=== PATIENT | female | born 1965 | race Two or more races ===

== ENCOUNTER 2016-05-22 12:10 | Inpatient (IN) | payer OTHER ==
[2016-05-22] MEDS ORDERED: SODIUM CHLORIDE 1,000 ML IV STA (14:21)
[2016-05-22] MEDS ORDERED: KETOROLAC TROMETHAMINE 30 MG/1 ML VIAL IVPUSH ONE (14:21)
[2016-05-22] MEDS ORDERED: KETOROLAC TROMETHAMINE 30 MG/1 ML VIAL ONE (14:49)
--- NOTE | 2016-05-22 14:50 | PDOC ---
History of Present Illness - General Chief Complaint: Pain, Acute Stated Complaint: ABD PAIN Time Seen by Provider: 05/22/16 13:41 History Source: Patient Exam Limitations: No Limitations - History of Present Illness Initial Comments: 05/22/16 14:46 50-year-old female presents to the ED with complaints of continual right upper quadrant pain that she describes as cramping now associated with nausea and headache. Patient states was seen here 2 weeks ago and was sent home after labs and CT were negative. Patient states history of cholecystectomy and also states history of pancreatitis 2-3 years ago. Patient denies fever, chills pain worsened with eating, dysuria, diarrhea, or lower abdominal discomfort. Patient also denies chest pain or shortness of breath, and cough. Timing/Duration: reports: constant, getting worse Quality: reports: moderate, cramping Abdominal Pain Onset Location: reports: RUQ Pain Radiation: denies: no radiation Aggravating Factors: worse with: None Alleviating Factors: worse with: None Past History - Past Medical History Allergies/Adverse Reactions: Allergies Allergy/AdvReac Type Severity Reaction Status Date / Time morphine Allergy Severe palpitation Verified 05/22/16 12:11 s Home Medications: Ambulatory Orders NK [No Known Home Medication] 05/10/16 Anemia: Yes Asthma: No Cancer: No Cardiac Disorders: No CVA: No COPD: No CHF: No Dementia: No Diabetes: No GI Disorders: Yes (CONSTIPATION, PANCRATITIS) Disorders: No HTN: No Hypercholesterolemia: No Liver Disease: No Seizures: No Thyroid Disease: No - Surgical History Abdominal Surgery: Yes Appendectomy: No Cardiac Surgery: No Cholecystectomy: Yes Lung Surgery: No Neurologic Surgery: No Orthopedic Surgery: No - Immunization History Immunization Up to Date: Yes - Psycho/Social/Smoking Cessation Hx Anxiety: No Suicidal Ideation: No Smoking Status: No Smoking History: Never smoked Have you smoked in the past 12 months: No Number of Cigarettes Smoked Daily: 0 Information on smoking cessation initiated: No Hx Alcohol Use: No Drug/Substance Use Hx: No Substance Use Type: Alcohol Hx Substance Use Treatment: No Patient Lives Alone: No Lives with/in: spouse/SO Abd/GI Specific PMHX - Complaint Specific PMHX Pancreatitis: Yes Review of Systems - Review of Systems Able to Perform ROS?: Yes Constitutional: No: Symptoms Reported HEENTM: No: Symptoms Reported Respiratory: No: Symptoms reported Cardiac (ROS): No: Symptoms Reported ABD/GI: Yes: Nausea, Abdominal cramping : No: Symptoms Reported Musculoskeletal: No: Symptoms Reported Integumentary: No: Symptoms Reported Neurological: Yes: Headache (frontal) Endocrine: No: Symptoms Reported Hematologic/Lymphatic: No: Symptoms Reported *Physical Exam - Vital Signs Last Vital Signs Temp Pulse Resp BP Pulse Ox 98.7 F 123 H 17 112/72 100 05/22/16 12:12 05/22/16 12:12 05/22/16 12:12 05/22/16 12:12 05/22/16 12:12 - Physical Exam General Appearance: Yes: Nourished, Appropriately Dressed. No: Apparent Distress HEENT: positive: EOMI, AMANDA. negative: Pale Conjunctivae Neck: positive: Normal Thyroid, Supple Respiratory/Chest: positive: Lungs Clear, Normal Breath Sounds. negative: Chest Tender, Respiratory Distress, Accessory Muscle Use Cardiovascular: positive: Regular Rhythm, Tachycardia. negative: Murmur Gastrointestinal/Abdominal: positive: Soft, Tenderness (ruq and right epigastric pain) Musculoskeletal: negative: CVA Tenderness Extremity: positive: Normal Capillary Refill. negative: Pedal Edema Integumentary: positive: Normal Color, Warm, Moist Neurologic: positive: Motor Strength 5/5 (ambulatory) ED Treatment Course - LABORATORY CBC & Chemistry Diagram: 05/24/16 10:55 05/24/16 10:55 - RADIOLOGY Radiology Studies Ordered: Category Date Time Status ABDOMEN US -LIMITED [US] Stat Ultrasound 05/22/16 14:24 Ordered Medical Decision Making - Critical Care Time Total Critical Care Time (minutes): 35 Critical Care Statement: The care of this patient involved high complexity decision making to prevent further life threatening deterioration of the patient 's condition and/or to evalute & treat vital organ system(s) failure or risk of failure. - Medical Decision Making 05/22/16 14:52 Patient with continual right upper quadrant pain now associated with nausea and frontal headache. Patient states has had no fever but has history of pancreatitis and cholecystectomy. Patient states was here 2 weeks ago and had an abdominal CT. CT showed biliary tract dilatation which was also noted 2015. Patient was sent home to follow-up with her PCP but states has not had an appointment yet because of the holiday and has an appointment next week but could not wait secondary to pain. Patient concerning for UTI versus worsening biliary tract dilatation versus pancreatitis versus CBD dilatation/stone. Patient ordered for labs including abdominal ultrasound, urine, IV fluids, pain control and Zofran 05/22/16 15:33 Patient has required Dilaudid for pain control of right upper quadrant tenderness. 05/22/16 17:00 Patient required second dose of Dilaudid after returning from ultrasound 05/22/16 17:35 Laboratory Tests 05/22/16 05/22/16 05/22/16 14:45 14:45 14:45 WBC 4.9 Hgb 13.6 Hct 42.9 Neutrophils % 78.8 D Sodium 140 Potassium 4.5 Chloride 106 Carbon Dioxide 27 Anion Gap 7 L BUN 8 D Creatinine 0.6 Creat Clearance w eGFR > 60 Random Glucose 87 Lactic Acid Calcium 8.9 Total Bilirubin 0.3 D AST 100 H D ALT 103 H Alkaline Phosphatase 205 H D Total Protein 8.5 H Lipase 186 Urine Ketones Negative Urine Nitrite Negative Ur Leukocyte Esterase Negative 05/22/16 14:45 WBC Hgb Hct Neutrophils % Sodium Potassium Chloride Carbon Dioxide Anion Gap BUN Creatinine Creat Clearance w eGFR Random Glucose Lactic Acid 1.980 Calcium Total Bilirubin AST ALT Alkaline Phosphatase Total Protein Lipase Urine Ketones Urine Nitrite Ur Leukocyte Esterase Ultrasound shows mild dilatation of the condyle that measuring 12 mm without gross at evidence of an intraluminal stone. Limits of normal in a postcholecystectomy is 10 mm. Further evaluation is needed. Patient continues with pain. Patient ordered for another Dilaudid IV push. 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 Butler who accepted patient to [facility] observation status. 05/24/16 12:10 *DC/Admit/Observation/Transfer Diagnosis at time of Disposition: Common bile duct dilatation, Intractable upper abdominal pain - Discharge Dispostion Admit: Yes
[2016-05-22 15:18] LABS: BASOPHIL 0.3 % (0-2.0); EOSINOPHIL 0.3 % (0-4.5); MCHC 31.6 g/dl (32.0-36.0); MEAN CELL VOLUME 85.5 fl (80-96); MEAN PLT VOLUME 8.6 fl (7.5-11.1); NEUTROPHILS 78.8 % (42.8-82.8); PLATELET COUNT 244 K/MM3 (134-434); WHITE BLOOD COUNT 4.9 K/mm3 (4.0-10.0)
[2016-05-22] MEDS ORDERED: HYDROmorphone HCL CARPU-JECT 2 MG/1 ML DISP.SYRIN IVPUSH ONE ×3 (15:39→17:31)
[2016-05-22] MEDS ORDERED: HYDROmorphone HCL CARPU-JECT 1 MG/1 ML DISP.SYRIN ONE ×3 (15:43→18:07)
[2016-05-22 15:46] LABS: ALBUMIN 4.1 g/dl (3.4-5.0); ALK PHOS 205 U/L (45-117); ANION GAP 7 (8-16); BILIRUBIN,TOTAL 0.3 mg/dL (0.2-1.0); CALCIUM 8.9 mg/dL (8.5-10.1); CO2 27 mmol/L (21-32); CREATININE 0.6 mg/dL (0.55-1.02); GLUCOSE,RANDOM 87 mg/dL (74-106); SGPT/ALT 103 U/L (12-78); TOT PROT 8.5 g/dl (6.4-8.2); URINE APPEARANCE CLEAR; URINE BILIRUBIN NEGATIVE (NEGATIVE); URINE BLOOD NEGATIVE (NEGATIVE); URINE COLOR STRAW; URINE GLUCOSE (UA) NEGATIVE (NEGATIVE); URINE KETONE NEGATIVE (NEGATIVE); URINE LEUK ESTERASE NEGATIVE (NEGATIVE); URINE NITRITE NEGATIVE (NEGATIVE); URINE PROTEIN NEGATIVE (NEGATIVE); URINE UROBILINOGEN NEGATIVE E.U./dl (0.2-1.0)
[2016-05-22 15:50] LABS: SGOT/AST 100 U/L (15-37)
[2016-05-22] MEDS ORDERED: INFLUENZA VACCINE 45 MCG/0.5 ML (MDV 16-17) IM ONE (19:54)
[2016-05-22] MEDS ORDERED: ACETAMINOPHEN 325 MG TABLET (FP) PO PRN (22:29)
[2016-05-22] MEDS ORDERED: DEXTROSE 5%-0.45% SALINE 1,000 ML IV SCH (22:30)
[2016-05-22 22:51] VITALS: BMI 26.2
[2016-05-23] MEDS: KETOROLAC TROMETHAMINE 30 MG/1 ML VIAL IVPUSH PRN ×3 (01:15→12:48)
[2016-05-23] MEDS ORDERED: ONDANSETRON 4 MG/2 ML VIAL IVPB PRN (02:05)
[2016-05-23 08:04] LABS: BASOPHIL 0.3 % (0-2.0); EOSINOPHIL 0.1 % (0-4.5); MCH 27.8 pg (25.7-33.7); MCHC 32.6 g/dl (32.0-36.0); MEAN CELL VOLUME 85.3 fl (80-96); MEAN PLT VOLUME 8.4 fl (7.5-11.1); NEUTROPHILS 49.5 % (42.8-82.8); PLATELET COUNT 204 K/MM3 (134-434); RDW 15.9 % (11.6-15.6); WHITE BLOOD COUNT 2.6 K/mm3 (4.0-10.0)
[2016-05-23 08:28] LABS: ALBUMIN 2.9 g/dl (3.4-5.0); ANION GAP 3 (8-16); CALCIUM 8.4 mg/dL (8.5-10.1); CO2 25 mmol/L (21-32); CREATININE 0.5 mg/dL (0.55-1.02); GLUCOSE,RANDOM 94 mg/dL (74-106); SGOT/AST 136 U/L (15-37); SGPT/ALT 154 U/L (12-78)
[2016-05-23 08:29] LABS: ALK PHOS 207 U/L (45-117); BILIRUBIN,TOTAL 0.4 mg/dL (0.2-1.0); TOT PROT 6.3 g/dl (6.4-8.2)
[2016-05-23] MEDS: HEPARIN NA (PORCINE) 5,000 UNITS/ML 1ML VIAL SQ SCH ×2 (11:54→21:52)
--- NOTE | 2016-05-23 14:46 | HP ---
Admitting History and Physical - Past Medical History ...LMP: 10/03/12 ...: No - Smoking History Smoking history: Never smoked Have you smoked in the past 12 months: No Aproximately how many cigarettes per day: 0 - Alcohol/Substance Use Hx Alcohol Use: No Home Medications - Allergies Allergies/Adverse Reactions: Allergies Allergy/AdvReac Type Severity Reaction Status Date / Time morphine Allergy Severe palpitation Verified 05/22/16 12:11 s - Home Medications Home Medications: Ambulatory Orders NK [No Known Home Medication] 05/10/16 Physical Examination Vital Signs: Vital Signs Temperature 97.8 F 05/23/16 09:00 Pulse Rate 83 05/23/16 09:00 Respiratory Rate 20 05/23/16 09:00 Blood Pressure 100/63 05/23/16 09:00 O2 Sat by Pulse Oximetry (%) 100 05/23/16 09:00 Labs: CBC, BMP 05/23/16 06:05 05/23/16 06:05
--- NOTE | 2016-05-23 18:56 | CONSULT ---
Consult Consult Specialty:: gastroenterology Referred by:: Dr Clement Marti/Luke Reason for Consultation:: ruq pain - History of Present Illness History of Present Illness: 50 y/o female s/o cholecystectomy 4 years ago has recurrent right upper quadrant pain for the past 3 mos. She was awakened by the pain last night and this morning. This was associated with nausea but no vomiting - Past Medical History ...LMP: 10/03/12 ...: No - Alcohol/Substance Use Hx Alcohol Use: No - Smoking History Smoking history: Never smoked Have you smoked in the past 12 months: No Aproximately how many cigarettes per day: 0 Home Medications - Allergies Allergies/Adverse Reactions: Allergies Allergy/AdvReac Type Severity Reaction Status Date / Time morphine Allergy Severe palpitation Verified 05/22/16 12:11 s - Home Medications Home Medications: Ambulatory Orders NK [No Known Home Medication] 05/10/16 Physical Exam-GI Vital Signs: Vital Signs Temperature 98 F 05/23/16 17:28 Pulse Rate 63 05/23/16 17:28 Respiratory Rate 18 05/23/16 17:28 Blood Pressure 103/64 05/23/16 17:28 O2 Sat by Pulse Oximetry (%) 100 05/23/16 09:00 Constitutional: Yes: Well Nourished Eyes: Yes: Conjunctiva Clear HENT: Yes: Atraumatic Neck: Yes: Supple Cardiovascular: Yes: Regular Rate and Rhythm Respiratory: Yes: CTA Bilaterally ...Palpate: Yes: Soft. No: Firm/Rigid, Guarding, Hepatomegaly, Mass, Pulsatile Mass, Tenderness (--on pain meds) Labs: CBC, BMP 05/23/16 06:05 05/23/16 06:05 Hepatic Panel Total Bilirubin 0.4 mg/dL (0.2-1.0) D 05/23/16 06:05 AST 136 U/L (15-37) H D 05/23/16 06:05 ALT 154 U/L (12-78) H D 05/23/16 06:05 Alkaline Phosphatase 207 U/L (45-117) H 05/23/16 06:05 Albumin 2.9 g/dl (3.4-5.0) L D 05/23/16 06:05 Imaging - Results Ultrasound: Report Reviewed MRI: Image Reviewed Problem List - Problems (1) Common bile duct dilatation Assessment/Plan: r/o CBD stone vs passage of sludge and stone vs sphincter of oddis dyskenisia R> await official MRCP result start on ayanna lieberman continue Iv hydration possible ERCP in am if no improvement--discussed risk including pancreatitis and bleeding and perforation Code(s): K83.8 - OTHER SPECIFIED DISEASES OF BILIARY TRACT
[2016-05-23] MEDS ORDERED: PANTOPRAZOLE SODIUM 100 ML IVPB ONE (19:00)
[2016-05-23] MEDS: DEXTROSE 5%-NORMAL SALINE 1,000 ML IV SCH (20:13)
[2016-05-23] MEDS: METOCLOPRAMIDE HCL INJECTION 10 MG/2 ML VIAL IVPB SCH (20:16)
[2016-05-23] MEDS: URSODIOL 300 MG CAPSULE PO SCH (21:52)
[2016-05-24] MEDS: KETOROLAC TROMETHAMINE 30 MG/1 ML VIAL IVPUSH PRN (01:36)
[2016-05-24] MEDS: METOCLOPRAMIDE HCL INJECTION 10 MG/2 ML VIAL IVPB SCH ×4 (02:13→19:57)
[2016-05-24 11:08] LABS: MCH 27.8 pg (25.7-33.7); MCHC 32.2 g/dl (32.0-36.0); MEAN CELL VOLUME 86.4 fl (80-96); MEAN PLT VOLUME 8.1 fl (7.5-11.1); PLATELET COUNT 220 K/MM3 (134-434); RDW 16.1 % (11.6-15.6)
[2016-05-24] MEDS: DEXTROSE 5%-NORMAL SALINE 1,000 ML IV SCH ×2 (11:13→19:57)
[2016-05-24] MEDS: URSODIOL 300 MG CAPSULE PO SCH ×3 (11:16→21:41)
[2016-05-24 11:28] LABS: ALBUMIN 3.4 g/dl (3.4-5.0); ANION GAP 7 (8-16); BILIRUBIN,TOTAL 0.3 mg/dL (0.2-1.0); CALCIUM 8.8 mg/dL (8.5-10.1); CO2 27 mmol/L (21-32); CREATININE 0.5 mg/dL (0.55-1.02); GLUCOSE,RANDOM 91 mg/dL (74-106); SGOT/AST 79 U/L (15-37); SGPT/ALT 130 U/L (12-78)
[2016-05-24 11:29] LABS: ALK PHOS 200 U/L (45-117)
[2016-05-24 11:50] LABS: WHITE BLOOD COUNT 1.9 K/mm3 (4.0-10.0)
[2016-05-24] MEDS: ACETAMINOPHEN 325 MG TABLET (FP) PO PRN (14:30)
[2016-05-24] MEDS: HEPARIN NA (PORCINE) 5,000 UNITS/ML 1ML VIAL SQ SCH ×2 (14:45→21:41)
[2016-05-24] MEDS: DICYCLOMINE HCL 10 MG CAPSULE PO PRN (14:47)
--- NOTE | 2016-05-24 15:40 | CONSULT ---
Consult Consult Specialty:: hematology-oncology Referred by:: Dr. 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) Pulmonary: Yes: Other (recent URI for which patient took Tamiflu) Gastrointestinal: Yes: Pancreatitis (hx of pancreatitis in prior hospital note) Hepatobiliary: Yes: Other (hx of cholecystectomy 5 years earlier) ...LMP: 10/03/12 ...: No Heme/Onc: Yes: Other (received transfusion of packed cells several years earlier ) - Past Surgical History Additional Surgical History: cholecystectomy 5 years earlier - Alcohol/Substance Use Hx Alcohol Use: No - Smoking History Smoking history: Never smoked Have you smoked in the past 12 months: No Aproximately how many cigarettes per day: 0 - 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 Home Medications - Allergies Allergies/Adverse Reactions: Allergies Allergy/AdvReac Type Severity Reaction Status Date / Time morphine Allergy Severe palpitation Verified 05/22/16 12:11 s - Home Medications Home Medications: Ambulatory Orders NK [No Known Home Medication] 05/10/16 Family Disease History - Family Disease History Family Disease History: Diabetes: Father (-complcations of DM), Other: Mother (-alive-hypertension) Other Family History: No cancer or blood dyscrasias Review of Systems - Review of Systems Constitutional: reports: Fever, Malaise, Other (3-4 days of fever last week- took Tamiflu and motrin). denies: Night Sweats Eyes: reports: No Symptoms HENT: denies: Difficult Swallowing, Throat Pain Neck: denies: Pain on Movement, Swollen Glands, Tenderness Cardiovascular: denies: Chest Pain, Shortness of Breath Respiratory: denies: Cough, Hemoptysis, SOB, SOB on Exertion Gastrointestinal: reports: Abdominal Pain, Nausea, Vomiting, Other (colonoscopy- 2 years earlier). denies: Constipation, Diarrhea, Dysphagia, Vomiting Blood Genitourinary: denies: Burning, Discharge, Dysuria Breasts: reports: No Symptoms Reported, Other (mammography 2 years earlier) Musculoskeletal: reports: Muscle Pain, Muscle Weakness Integumentary: denies: Bruising, Rash Neurological: reports: No Symptoms Endocrine: denies: Excessive Sweating Hematology/Lymphatic: denies: Easily Bruised, Excessive Bleeding Psychiatric: reports: No Symptoms Physical Exam Vital Signs: Vital Signs Temperature 98.3 F 05/24/16 14:23 Pulse Rate 78 05/24/16 14:23 Respiratory Rate 20 05/24/16 14:23 Blood Pressure 119/72 05/24/16 14:23 O2 Sat by Pulse Oximetry (%) 100 05/23/16 21:00 Constitutional: Yes: No Distress Eyes: Yes: EOM Intact, PERRL. No: Cataracts, Diplopia, Ptosis, Sclera Icterus HENT: No: Pharyngeal Erythema, Tonsillar Exudate Neck: Yes: Supple, Trachea Midline. No: Lymphadenopathy, Tenderness Cardiovascular: Yes: Regular Rate and Rhythm Respiratory: Yes: Regular, CTA Bilaterally Gastrointestinal: Yes: Normal Bowel Sounds, Soft. No: Hepatomegaly, Splenomegaly Renal/: No: CVA Tenderness - Left, CVA Tenderness - Right Breast(s): Yes: WNL, Left, Right. No: Skin Changes Musculoskeletal: No: Joint Swelling Extremities: Yes: WNL Edema: No Neurological: Yes: WNL Labs: CBC, BMP 05/24/16 10:55 05/24/16 10:55 Imaging - Results MRI: Report Reviewed Problem List - Problems (1) Leukopenia Assessment/Plan: Leukopenia which has developed in hospital. Consider medications or infection as underlying etiololy Meds- reglan and actigall (3%) possible offenders Would consider d/c of above meds and culturing up, followed by antibiotic therapy. Will do screening tests. . Code(s): D72.819 - DECREASED WHITE BLOOD CELL COUNT, UNSPECIFIED Qualifiers: Neutropenia type: unspecified (2) Common bile duct dilatation Assessment/Plan: CBD dilatation with cut-off. Consider ERCP Code(s): K83.8 - OTHER SPECIFIED DISEASES OF BILIARY TRACT
[2016-05-24] MEDS ORDERED: CEFTRIAXONE 1 GM in DEXTROSE 5%-WATER - 50 ML IVPB SCH (18:30)
--- NOTE | 2016-05-24 19:46 | PN ---
GI Progress Note Subjective: no abdominal pain since 1am this morning, lfts downward trend but with new onset of leukopenia - Objective Vital Signs: Vital Signs Temperature 98.3 F 05/24/16 14:23 Pulse Rate 78 05/24/16 14:23 Respiratory Rate 20 05/24/16 14:23 Blood Pressure 119/72 05/24/16 14:23 O2 Sat by Pulse Oximetry (%) 100 05/23/16 21:00 Constitutional: Well Nourished Eyes: Yes: Conjunctiva Clear HENT: Yes: Atraumatic Neck: Yes: Supple Cardiovascular: Yes: Regular Rate and Rhythm Respiratory: Yes: CTA Bilaterally ...Palpate: Yes: Soft. No: Firm/Rigid, Guarding, Hepatomegaly, Mass, Pulsatile Mass, Splenomegaly, Tenderness Labs: CBC, BMP 05/24/16 10:55 05/24/16 10:55 Problem List - Problems (1) Common bile duct dilatation Assessment/Plan: lfts downward trend possibly patient passed CBD stone/sludge Code(s): K83.8 - OTHER SPECIFIED DISEASES OF BILIARY TRACT (2) Leukopenia Assessment/Plan: r/o underlying cholangitis unlikely , etiology unclear R>started emprically on Ceftriaxone and Flagyl Code(s): D72.819 - DECREASED WHITE BLOOD CELL COUNT, UNSPECIFIED Qualifiers: Neutropenia type: unspecified
[2016-05-24] MEDS: METRONIDAZOLE 500 MG PREMIXED 100 ML IVPB SCH (20:00)
[2016-05-24] MEDS: cefTRIAXone 1 GM/50 ML BAG (PRE-DOCKED) IVPB SCH (21:42)
--- NOTE | 2016-05-24 22:46 | PN ---
Progress Note, Physician - Current Medication List Current Medications: Active Medications Acetaminophen (Tylenol -) 650 mg PO Q6H PRN PRN Reason: FEVER Last Admin: 05/24/16 14:30 Dose: 650 mg Ceftriaxone Sodium (Rocephin 1gm Ivpb (Pre-Docked)) 1 gm IVPB DAILY [facility] Last Admin: 05/24/16 21:42 Dose: 1 gm Dicyclomine HCl (Bentyl -) 10 mg PO Q8H PRN PRN Reason: MUSCLE SPASMS Last Admin: 05/24/16 14:47 Dose: 10 mg Heparin Sodium (Porcine) (Heparin -) 5,000 unit SQ BID [facility] Last Admin: 05/24/16 21:41 Dose: 5,000 unit Dextrose/Sodium Chloride (D5-Ns -) 1,000 mls @ 125 mls/hr IV ASDIR [facility] Stop: 05/26/16 02:59 Last Admin: 05/24/16 19:57 Dose: Not Given Metronidazole (Flagyl 500mg Premixed Ivpb -) 100 mls @ 100 mls/hr IVPB Q8H-IV [facility] Last Admin: 05/24/16 20:00 Dose: 100 mls/hr Ketorolac Tromethamine (Toradol Injection -) 30 mg IVPUSH Q6H PRN Stop: 05/27/16 22:27 Last Admin: 05/24/16 01:36 Dose: 30 mg Metoclopramide HCl (Reglan Injection -) 10 mg IVPB Q8H-IV [facility] Last Admin: 05/24/16 19:57 Dose: Not Given Ondansetron HCl (Zofran Injection) 4 mg IVPB Q6H PRN PRN Reason: NAUSEA Ursodiol (Actigal -) 300 mg PO BID [facility] Last Admin: 05/24/16 21:41 Dose: 300 mg - Objective Vital Signs: Vital Signs Temperature 98.1 F 05/24/16 21:35 Pulse Rate 65 05/24/16 21:35 Respiratory Rate 18 05/24/16 21:35 Blood Pressure 102/63 05/24/16 21:35 O2 Sat by Pulse Oximetry (%) 100 05/23/16 21:00 Labs: CBC, BMP 05/24/16 10:55 05/24/16 10:55
[2016-05-25] MEDS: DEXTROSE 5%-NORMAL SALINE 1,000 ML IV SCH ×2 (00:39→19:27)
[2016-05-25] MEDS: PIPERACILLIN/TAZOB 3.375 GM/50 ML PRE-DOCKED IVPB SCH ×2 (00:40→07:03)
[2016-05-25] MEDS: METOCLOPRAMIDE HCL INJECTION 10 MG/2 ML VIAL IVPB SCH ×2 (02:41→12:32)
[2016-05-25] MEDS: METRONIDAZOLE 500 MG PREMIXED 100 ML IVPB SCH ×2 (02:42→16:18)
[2016-05-25] MEDS: DICYCLOMINE HCL 10 MG CAPSULE PO PRN (04:26)
[2016-05-25 07:45] LABS: BASOPHIL 0.5 % (0-2.0); EOSINOPHIL 0.9 % (0-4.5); MCH 27.8 pg (25.7-33.7); MCHC 32.9 g/dl (32.0-36.0); MEAN CELL VOLUME 84.6 fl (80-96); MEAN PLT VOLUME 8.4 fl (7.5-11.1); NEUTROPHILS 44.5 % (42.8-82.8); PLATELET COUNT 203 K/MM3 (134-434); RDW 15.9 % (11.6-15.6)
[2016-05-25 08:01] LABS: BILIRUBIN,TOTAL 0.2 mg/dL (0.2-1.0)
[2016-05-25 08:03] LABS: ALBUMIN 2.8 g/dl (3.4-5.0); ANION GAP 6 (8-16); CALCIUM 8.1 mg/dL (8.5-10.1); CO2 28 mmol/L (21-32); CREATININE 0.6 mg/dL (0.55-1.02); GLUCOSE,RANDOM 113 mg/dL (74-106); SGOT/AST 43 U/L (15-37); SGPT/ALT 85 U/L (12-78)
[2016-05-25 08:05] LABS: WHITE BLOOD COUNT 1.6 K/mm3 (4.0-10.0)
[2016-05-25 08:07] LABS: INR 1.12 (0.82-1.09); PROTHROMBIN TIME (PATIENT) 12.3 SEC (9.98-11.88)
[2016-05-25 08:09] LABS: ALK PHOS 165 U/L (45-117); FREE T4 1.37 ng/dl (0.76-1.46); THYROID STIMULATING HORMONE 0.39 uIU/ml (0.358-3.74)
[2016-05-25 08:10] LABS: ACTIVATED PTT 34.9 SECONDS (26.9-34.4)
[2016-05-25] MEDS: cefTRIAXone 1 GM/50 ML BAG (PRE-DOCKED) IVPB SCH (11:38)
[2016-05-25] MEDS: HEPARIN NA (PORCINE) 5,000 UNITS/ML 1ML VIAL SQ SCH ×2 (11:38→21:03)
[2016-05-25] MEDS: URSODIOL 300 MG CAPSULE PO SCH (11:38)
--- NOTE | 2016-05-25 15:48 | CONSULT ---
Consult Consult Specialty:: infectious diseases Referred by:: Reason for Consultation:: sepsis - History of Present Illness Chief Complaint: abd pain ruq History of Present Illness: 50 y/o female s/p cholecystectomy 4 years ago has been having recurrent right upper quadrant pain for the past 3 mos. 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) Pulmonary: Yes: Other (recent URI for which patient took Tamiflu) Gastrointestinal: Yes: Pancreatitis (hx of pancreatitis in prior hospital note) Hepatobiliary: Yes: Other (hx of cholecystectomy 5 years earlier) ...LMP: 10/03/12 ...: No - Past Surgical History Additional Surgical History: cholecystectomy 5 years earlier - Alcohol/Substance Use Hx Alcohol Use: No - Smoking History Smoking history: Never smoked Have you smoked in the past 12 months: No Aproximately how many cigarettes per day: 0 - 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 Home Medications - Allergies Allergies/Adverse Reactions: Allergies Allergy/AdvReac Type Severity Reaction Status Date / Time morphine Allergy Severe palpitation Verified 05/22/16 12:11 s - Home Medications Home Medications: Ambulatory Orders NK [No Known Home Medication] 05/10/16 Family Disease History - Family Disease History Family Disease History: Diabetes: Father (-complcations of DM), Other: Mother (-alive-hypertension) Other Family History: No cancer or blood dyscrasias Review of Systems - Review of Systems Constitutional: reports: No Symptoms Eyes: reports: No Symptoms HENT: reports: No Symptoms Neck: reports: No Symptoms Cardiovascular: reports: No Symptoms Respiratory: reports: No Symptoms Gastrointestinal: reports: Abdominal Pain, Nausea Genitourinary: reports: No Symptoms Musculoskeletal: reports: No Symptoms Neurological: reports: No Symptoms Endocrine: reports: No Symptoms Hematology/Lymphatic: reports: No Symptoms Psychiatric: reports: No Symptoms Physical Exam Vital Signs: Vital Signs Temperature 97.8 F 05/25/16 14:58 Pulse Rate 62 05/25/16 14:58 Respiratory Rate 20 05/25/16 14:58 Blood Pressure 101/62 05/25/16 14:58 O2 Sat by Pulse Oximetry (%) 100 05/23/16 21:00 Constitutional: Yes: Well Nourished, Calm, Mild Distress Eyes: Yes: Conjunctiva Clear Cardiovascular: Yes: Regular Rate and Rhythm Respiratory: Yes: Regular, CTA Bilaterally Gastrointestinal: Yes: Normal Bowel Sounds, Soft Musculoskeletal: Yes: WNL Extremities: Yes: WNL Integumentary: Yes: WNL Neurological: Yes: Alert, Oriented Psychiatric: Yes: Alert, Oriented Imaging - Results Ultrasound: Report Reviewed, Image Reviewed Other: Report Reviewed (mrcp), Image Reviewed Assessment/Plan patient is neutropenic and i agree with the thought process that drugs she had tken could have caused this picture also i could not get any relevant living condition history Also she could have had cbd ston or passed looking at the mrcp with nausea and other features there is a rare chance of viral issues which could have cause some BM suppression The last thing is she could have been in sepsis because of her biliary issues Problem List - Problems (1) Common bile duct dilatation Code(s): K83.8 - OTHER SPECIFIED DISEASES OF BILIARY TRACT neutropenia abd pain and nausea plan she should get ercp i will cover her with abx because she is very high nate for infection untill neutropenia improves close watch on wbc hold of medication rest as per teams
--- NOTE | 2016-05-25 17:51 | PN ---
GI Progress Note Subjective: patients abdominal pain resolved - Objective Vital Signs: Vital Signs Temperature 97.8 F 05/25/16 14:58 Pulse Rate 62 05/25/16 14:58 Respiratory Rate 20 05/25/16 14:58 Blood Pressure 101/62 05/25/16 14:58 O2 Sat by Pulse Oximetry (%) 100 05/23/16 21:00 Constitutional: Well Nourished Eyes: Yes: Conjunctiva Clear HENT: Yes: Atraumatic Neck: Yes: Supple Cardiovascular: Yes: Regular Rate and Rhythm Respiratory: Yes: CTA Bilaterally ...Palpate: Yes: Soft. No: Firm/Rigid, Guarding, Hepatomegaly, Mass, Pulsatile Mass, Splenomegaly, Tenderness Labs: INR, PTT INR 1.12 (0.82-1.09) 05/25/16 06:00 Problem List - Problems (1) Common bile duct dilatation Assessment/Plan: --r/o sphincter of oddi dyskenisia Code(s): K83.8 - OTHER SPECIFIED DISEASES OF BILIARY TRACT (2) Leukopenia Assessment/Plan: --most likely viral R>viral w/u ordered Code(s): D72.819 - DECREASED WHITE BLOOD CELL COUNT, UNSPECIFIED Qualifiers: Neutropenia type: unspecified
[2016-05-25] MEDS ORDERED: PIPERACILLIN/TAZOB 3.375 GM/50 ML PRE-DOCKED IVPB SCH (18:00)
[2016-05-25] MEDS: PIPERACILLIN/TAZOB 4.5 GM 100 ML IVPB SCH (18:55)
--- NOTE | 2016-05-25 20:10 | PN ---
Progress Note, Physician History of Present Illness: comfortable - Current Medication List Current Medications: Active Medications Acetaminophen (Tylenol -) 650 mg PO Q6H PRN PRN Reason: FEVER Last Admin: 05/24/16 14:30 Dose: 650 mg Heparin Sodium (Porcine) (Heparin -) 5,000 unit SQ BID [facility] Last Admin: 05/25/16 11:38 Dose: 5,000 unit Dextrose/Sodium Chloride (D5-Ns -) 1,000 mls @ 125 mls/hr IV ASDIR [facility] Stop: 05/26/16 02:59 Last Admin: 05/25/16 19:27 Dose: Not Given Piperacillin Sod/Tazobactam Sod (Zosyn 4.5gm Ivpb (Pre-Docked)) 100 mls @ 200 mls/hr IVPB Q8H-IV [facility] Last Admin: 05/25/16 18:55 Dose: 200 mls/hr - Objective Vital Signs: Vital Signs Temperature 97.5 F L 05/25/16 19:00 Pulse Rate 86 05/25/16 19:00 Respiratory Rate 18 05/25/16 19:00 Blood Pressure 107/66 05/25/16 19:00 O2 Sat by Pulse Oximetry (%) 100 05/23/16 21:00 Constitutional: Yes: No Distress HENT: Yes: Atraumatic Neck: Yes: Supple Cardiovascular: Yes: Regular Rate and Rhythm Respiratory: Yes: CTA Bilaterally Gastrointestinal: Yes: Normal Bowel Sounds Extremities: Yes: WNL Labs: INR, PTT INR 1.12 (0.82-1.09) 05/25/16 06:00 Problem List - Problems (1) Common bile duct dilatation Assessment/Plan: need to know further plans from gi ercp??? Code(s): K83.8 - OTHER SPECIFIED DISEASES OF BILIARY TRACT (2) Leukopenia Assessment/Plan: will monitor does not know the reason , culd be side effect of medication? Code(s): D72.819 - DECREASED WHITE BLOOD CELL COUNT, UNSPECIFIED Qualifiers: Neutropenia type: unspecified (3) Abdominal pain Assessment/Plan: resolved Code(s): R10.9 - UNSPECIFIED ABDOMINAL PAIN Qualifiers: Abdominal location: left lower quadrant Qualified Code(s): R10.32 - Left lower quadrant pain
--- NOTE | 2016-05-25 23:46 | PN ---
Progress Note (short form) - Note Progress Note: Patient seen and examined Feels OK. no specific complaints Last Vital Signs Temp Pulse Resp BP Pulse Ox 98 F 66 18 129/74 98 05/25/16 20:29 05/25/16 20:29 05/25/16 20:29 05/25/16 20:29 05/25/16 20:29 HEENT: CECILIA, EOM Intact Oropharynx: No thrush, No mucositis Cor: RSR, No murmurs, No gallops Lungs: Clear to P&A Abd: Soft, Normal bowel sounds, No organomegaly Ext:No significant edema Skin: No rashes, Integument intact Abnormal Lab Results 05/25/16 05/25/16 05/25/16 06:00 06:00 06:00 WBC 1.6 L RDW 15.9 H Lymphocytes % 42.2 H Monocytes % 11.9 H PTT (Actin FS) 34.9 H Chloride 110 H Anion Gap 6 L BUN 4 L D Random Glucose 113 H D Calcium 8.1 L AST 43 H D ALT 85 H D Alkaline Phosphatase 165 H Total Protein 6.0 L Albumin 2.8 L Serum Folate 24 H Current Medications Acetaminophen (Tylenol -) 650 mg PO Q6H PRN PRN Reason: FEVER Last Admin: 05/24/16 14:30 Dose: 650 mg Heparin Sodium (Porcine) (Heparin -) 5,000 unit SQ BID NELLY Last Admin: 05/25/16 21:03 Dose: 5,000 unit Dextrose/Sodium Chloride (D5-Ns -) 1,000 mls @ 125 mls/hr IV ASDIR NELLY Stop: 05/26/16 02:59 Last Admin: 05/25/16 19:27 Dose: Not Given Piperacillin Sod/Tazobactam Sod (Zosyn 4.5gm Ivpb (Pre-Docked)) 100 mls @ 200 mls/hr IVPB Q8H-IV NELLY Last Admin: 05/25/16 18:55 Dose: 200 mls/hr a/P 50 y/o patient with leukopenia ---? post viral B12 --nl --_ antiparietal cell antibody folate/TSH--nl Flow pending HIV pending HEIDI/RF/ESR/CRP --pending monitor for infection Dilated CBD/hepatic ducts--w/u per GI team
[2016-05-26] MEDS: PIPERACILLIN/TAZOB 4.5 GM 100 ML IVPB SCH ×3 (01:19→18:31)
[2016-05-26 07:26] LABS: MEAN PLT VOLUME 8.2 fl (7.5-11.1); PLATELET COUNT 230 K/MM3 (134-434); RDW 15.7 % (11.6-15.6)
[2016-05-26 07:52] LABS: WHITE BLOOD COUNT 1.8 K/mm3 (4.0-10.0)
[2016-05-26 08:21] LABS: ALBUMIN 3.2 g/dl (3.4-5.0); ANION GAP 8 (8-16); CALCIUM 8.7 mg/dL (8.5-10.1); CO2 28 mmol/L (21-32); GLUCOSE,RANDOM 84 mg/dL (74-106); SGOT/AST 51 U/L (15-37)
[2016-05-26 08:26] LABS: ALK PHOS 159 U/L (45-117); BILIRUBIN,TOTAL 0.3 mg/dL (0.2-1.0); CREATININE 0.5 mg/dL (0.55-1.02); SGPT/ALT 83 U/L (12-78); TOT PROT 6.5 g/dl (6.4-8.2)
[2016-05-26 08:56] LABS: HIV 1 & 2 AB NEGATIVE; HIV 1 AGp24 NEGATIVE
[2016-05-26 09:00] LABS: C-REACTIVE PROTEIN < 0.3 MG/DL (0.00-0.3)
[2016-05-26] MEDS: HEPARIN NA (PORCINE) 5,000 UNITS/ML 1ML VIAL SQ SCH ×2 (11:33→21:22)
--- NOTE | 2016-05-26 13:16 | PN ---
Progress Note, Physician History of Present Illness: no issues has been stable no complaints - Current Medication List Current Medications: Active Medications Acetaminophen (Tylenol -) 650 mg PO Q6H PRN PRN Reason: FEVER Last Admin: 05/24/16 14:30 Dose: 650 mg Heparin Sodium (Porcine) (Heparin -) 5,000 unit SQ BID NELLY Last Admin: 05/26/16 11:33 Dose: 5,000 unit Piperacillin Sod/Tazobactam Sod (Zosyn 4.5gm Ivpb (Pre-Docked)) 100 mls @ 200 mls/hr IVPB Q8H-IV NELLY Last Admin: 05/26/16 11:33 Dose: 200 mls/hr - Objective Vital Signs: Vital Signs Temperature 98.4 F 05/26/16 06:23 Pulse Rate 68 05/26/16 06:23 Respiratory Rate 18 05/26/16 06:23 Blood Pressure 112/65 05/26/16 06:23 O2 Sat by Pulse Oximetry (%) 98 05/25/16 20:29 Constitutional: Yes: No Distress, Calm Cardiovascular: Yes: Regular Rate and Rhythm Respiratory: Yes: Regular, CTA Bilaterally Gastrointestinal: Yes: Normal Bowel Sounds, Soft Musculoskeletal: Yes: WNL Extremities: Yes: WNL Neurological: Yes: Alert, Oriented Psychiatric: Yes: Alert Labs: CBC, BMP 05/26/16 06:00 05/26/16 06:00 INR, PTT INR 1.12 (0.82-1.09) 05/25/16 06:00 Assessment/Plan patient is neutropenic and i agree with the thought process that drugs she had tken could have caused this picture also i could not get any relevant living condition history Also she could have had cbd ston or passed looking at the mrcp with nausea and other features there is a rare chance of viral issues which could have cause some BM suppression The last thing is she could have been in sepsis because of her biliary issues Problem List - Problems (1) Common bile duct dilatation Code(s): K83.8 - OTHER SPECIFIED DISEASES OF BILIARY TRACT neutropenia abd pain and nausea plan continue abx patient has slightly increased wbc agree with the thought process of r/o hiv continue to monitor
--- NOTE | 2016-05-26 16:59 | PN ---
Progress Note (short form) - Note Progress Note: Patient seen and examined symptoms improved Last Vital Signs Temp Pulse Resp BP Pulse Ox 97.9 F 50 L 20 115/69 98 05/26/16 15:20 05/26/16 15:20 05/26/16 15:20 05/26/16 15:20 05/25/16 20:29 HEENT: CECILIA, EOM Intact Oropharynx: No thrush, No mucositis Cor: RSR, No murmurs, No gallops Lungs: Clear to P&A Abd: Soft, Normal bowel sounds, No organomegaly Ext:No significant edema Abnormal Lab Results 05/26/16 05/26/16 06:00 06:00 WBC 1.8 L RDW 15.7 H Neutrophils % 36.0 L Lymphocytes % 54.0 H D Chloride 108 H BUN 4 L Creatinine 0.5 L AST 51 H ALT 83 H Alkaline Phosphatase 159 H Albumin 3.2 L Current Medications Acetaminophen (Tylenol -) 650 mg PO Q6H PRN PRN Reason: FEVER Last Admin: 05/24/16 14:30 Dose: 650 mg Heparin Sodium (Porcine) (Heparin -) 5,000 unit SQ BID NELLY Last Admin: 05/26/16 11:33 Dose: 5,000 unit Piperacillin Sod/Tazobactam Sod (Zosyn 4.5gm Ivpb (Pre-Docked)) 100 mls @ 200 mls/hr IVPB Q8H-IV NELLY Last Admin: 05/26/16 11:33 Dose: 200 mls/hr a/P 50 y/o patient with leukopenia --- B12 --nl --_++antiparietal cell antibody folate/TSH--nl Flow pending HIV negative Hep. serologies opending HEIDI/RF/ESR/CRP --pending Dilated CBD/hepatic ducts, post cholecystectomy physiologic phenomenon versus -- -stricture/? dyskinbesis --given that dilatation has worsened. Patients symptoms have improved on antibiotics. Hence occult biliary sepsis as a cause of leukopenia? Improving clinically on antibiotics will need to monitor WBC will need outpatient office f/u with us
--- NOTE | 2016-05-26 17:40 | PN ---
Progress Note, Physician History of Present Illness: comfortable - Current Medication List Current Medications: Active Medications Acetaminophen (Tylenol -) 650 mg PO Q6H PRN PRN Reason: FEVER Last Admin: 05/24/16 14:30 Dose: 650 mg Heparin Sodium (Porcine) (Heparin -) 5,000 unit SQ BID NELLY Last Admin: 05/26/16 11:33 Dose: 5,000 unit Piperacillin Sod/Tazobactam Sod (Zosyn 4.5gm Ivpb (Pre-Docked)) 100 mls @ 200 mls/hr IVPB Q8H-IV NELLY Last Admin: 05/26/16 11:33 Dose: 200 mls/hr - Objective Vital Signs: Vital Signs Temperature 97.9 F 05/26/16 15:20 Pulse Rate 50 L 05/26/16 15:20 Respiratory Rate 20 05/26/16 15:20 Blood Pressure 115/69 05/26/16 15:20 O2 Sat by Pulse Oximetry (%) 98 05/25/16 20:29 Constitutional: Yes: No Distress HENT: Yes: Atraumatic Neck: Yes: Supple Cardiovascular: Yes: Regular Rate and Rhythm Respiratory: Yes: CTA Bilaterally Gastrointestinal: Yes: Normal Bowel Sounds Extremities: Yes: WNL Neurological: Yes: Alert, Oriented Labs: CBC, BMP 05/26/16 06:00 05/26/16 06:00 INR, PTT INR 1.12 (0.82-1.09) 05/25/16 06:00 Problem List - Problems (1) Common bile duct dilatation Code(s): K83.8 - OTHER SPECIFIED DISEASES OF BILIARY TRACT (2) Leukopenia Code(s): D72.819 - DECREASED WHITE BLOOD CELL COUNT, UNSPECIFIED Qualifiers: Neutropenia type: unspecified (3) Abdominal pain Code(s): R10.9 - UNSPECIFIED ABDOMINAL PAIN Qualifiers: Abdominal location: left lower quadrant Qualified Code(s): R10.32 - Left lower quadrant pain Assessment/Plan Problem List - Problems (1) Common bile duct dilatation need to know further plans from gi ercp??? (2) Leukopenia still the same on abx (3) Abdominal pain resolved:
--- NOTE | 2016-05-26 20:03 | PN ---
GI Progress Note Subjective: tolerating diet, patient and was made aware of findings of dilated CBD and pancreatic cyst. Patient for EUS once acute event is resolved, contraindicated to undergo any procedure including ERCP at this time because of neutropenia - Objective Vital Signs: Vital Signs Temperature 98.2 F 05/26/16 19:32 Pulse Rate 66 05/26/16 19:32 Respiratory Rate 18 05/26/16 19:37 Blood Pressure 107/71 05/26/16 19:32 O2 Sat by Pulse Oximetry (%) 98 05/26/16 19:37 Constitutional: Well Nourished Eyes: Yes: Conjunctiva Clear HENT: Yes: Atraumatic Neck: Yes: Trachea Midline Cardiovascular: Yes: Regular Rate and Rhythm Respiratory: Yes: CTA Bilaterally ...Palpate: Yes: Soft. No: Firm/Rigid, Guarding, Hepatomegaly, Mass, Pulsatile Mass, Splenomegaly, Tenderness Labs: CBC, BMP 05/26/16 06:00 05/26/16 06:00 INR, PTT INR 1.12 (0.82-1.09) 05/25/16 06:00 Problem List - Problems (1) Common bile duct dilatation Assessment/Plan: associated with small cyst R> will arrange of endoscopic ultrasound as an outpatient, the patients family was made aware Code(s): K83.8 - OTHER SPECIFIED DISEASES OF BILIARY TRACT (2) Leukopenia Code(s): D72.819 - DECREASED WHITE BLOOD CELL COUNT, UNSPECIFIED Qualifiers: Neutropenia type: unspecified
[2016-05-27] MEDS: ACETAMINOPHEN 325 MG TABLET (FP) PO PRN (01:09)
[2016-05-27] MEDS: PIPERACILLIN/TAZOB 4.5 GM 100 ML IVPB SCH ×3 (01:10→17:58)
[2016-05-27 10:04] LABS: MEAN CELL VOLUME 85.3 fl (80-96); WHITE BLOOD COUNT 2.6 K/mm3 (4.0-10.0)
[2016-05-27 10:05] LABS: MCH 27.6 pg (25.7-33.7); MCHC 32.4 g/dl (32.0-36.0); MEAN PLT VOLUME 8.8 fl (7.5-11.1); PLATELET COUNT 233 K/MM3 (134-434); RDW 16.3 % (11.6-15.6)
--- NOTE | 2016-05-27 10:16 | PN ---
Progress Note (short form) - Note Progress Note: Patient seen and examined Offers no complaints on ROS. In particular denies chest pain, cough, SOB, dyspnea, GI problems of nausea, emesis, diarrhea, constipation, abdominal pains, dysuria, frequency, hematuria. Tolerating diet Last Vital Signs Temp Pulse Resp BP Pulse Ox 98.6 F 62 18 103/60 98 05/27/16 06:00 05/27/16 06:00 05/27/16 06:00 05/27/16 06:00 05/26/16 19:37 HEENT: CECILIA, EOM Intact Oropharynx: No thrush, No mucositis Cor: RSR, No murmurs, No gallops Lungs: Clear to P&A Abd: Soft, Normal bowel sounds, No organomegaly Ext:No significant edema Skin: No rashes, Integument intact No lab available- will re-order. Current Medications Generic Name Dose Route Start Last Admin Trade Name Freq PRN Reason Stop Dose Admin Acetaminophen 650 mg 05/22/16 22:40 05/27/16 01:09 Tylenol - PO 650 mg Q6H PRN Administration FEVER Heparin Sodium (Porcine) 5,000 unit 05/23/16 10:00 05/26/16 21:22 Heparin - SQ 5,000 unit BID NELLY Administration Piperacillin Sod/Tazobactam Sod 100 mls @ 200 mls/hr 05/25/16 16:30 05/27/16 01 :10 Zosyn 4.5gm Ivpb (Pre-Docked) IVPB 200 mls/hr Q8H-IV NELLY Administration Impression: CBD dilatation- for ERCP in future . Need acute problems and neutropenia resolution Pancreatic cysts Neutropenia- antecedent viral like illness prior to admission ; Currently on zosyn for possible infectious etiology As WBC was normal on admission, would anticipate improvement with time. IF no improvement, patient will require bone marrow examination. Problem List - Problems (1) Leukopenia Code(s): D72.819 - DECREASED WHITE BLOOD CELL COUNT, UNSPECIFIED Qualifiers: Neutropenia type: unspecified (2) Common bile duct dilatation Code(s): K83.8 - OTHER SPECIFIED DISEASES OF BILIARY TRACT
[2016-05-27] MEDS: HEPARIN NA (PORCINE) 5,000 UNITS/ML 1ML VIAL SQ SCH ×2 (10:55→22:42)
[2016-05-27 11:28] LABS: ERYTHROCYTE SEDIMENTATION RATE 33 mm/hr (0-30)
--- NOTE | 2016-05-27 19:47 | PN ---
Progress Note, Physician - Current Medication List Current Medications: Active Medications Acetaminophen (Tylenol -) 650 mg PO Q6H PRN PRN Reason: FEVER Last Admin: 05/27/16 01:09 Dose: 650 mg Heparin Sodium (Porcine) (Heparin -) 5,000 unit SQ BID NELLY Last Admin: 05/27/16 10:55 Dose: 5,000 unit Piperacillin Sod/Tazobactam Sod (Zosyn 4.5gm Ivpb (Pre-Docked)) 100 mls @ 200 mls/hr IVPB Q8H-IV NELLY Last Admin: 05/27/16 17:58 Dose: 200 mls/hr - Objective Vital Signs: Vital Signs Temperature 97.9 F 05/27/16 10:00 Pulse Rate 70 05/27/16 10:00 Respiratory Rate 18 05/27/16 10:00 Blood Pressure 124/64 05/27/16 10:00 O2 Sat by Pulse Oximetry (%) 100 05/27/16 09:00 Labs: CBC, BMP 05/27/16 06:15 05/26/16 06:00 INR, PTT INR 1.12 (0.82-1.09) 05/25/16 06:00
[2016-05-28 00:07] LABS: HBeAG Negative (Negative); HEP B SURFACE AB Non Reactive (.); HEP BE AB Negative (Negative)
[2016-05-28] MEDS: PIPERACILLIN/TAZOB 4.5 GM 100 ML IVPB SCH ×2 (01:08→09:35)
[2016-05-28 08:06] LABS: BASOPHIL 0.2 % (0-2.0); EOSINOPHIL 1.7 % (0-4.5); MCH 28.2 pg (25.7-33.7); MEAN CELL VOLUME 85.2 fl (80-96); MEAN PLT VOLUME 8.5 fl (7.5-11.1); NEUTROPHILS 50.7 % (42.8-82.8); PLATELET COUNT 245 K/MM3 (134-434); RDW 16.1 % (11.6-15.6); WHITE BLOOD COUNT 3.2 K/mm3 (4.0-10.0)
[2016-05-28] MEDS: HEPARIN NA (PORCINE) 5,000 UNITS/ML 1ML VIAL SQ SCH ×2 (09:34→22:35)
[2016-05-28 11:47] LABS: ALBUMIN 3.3 g/dl (3.4-5.0); ALK PHOS 168 U/L (45-117); ANION GAP 6 (8-16); BILIRUBIN,TOTAL 0.4 mg/dL (0.2-1.0); CALCIUM 9.1 mg/dL (8.5-10.1); CO2 24 mmol/L (21-32); CREATININE 0.6 mg/dL (0.55-1.02); GLUCOSE,RANDOM 87 mg/dL (74-106); SGOT/AST 147 U/L (15-37); SGPT/ALT 136 U/L (12-78); TOT PROT 6.5 g/dl (6.4-8.2)
--- NOTE | 2016-05-28 14:48 | PN ---
Progress Note, Physician History of Present Illness: patient doing well no complaints wbc starting to go up - Current Medication List Current Medications: Active Medications Acetaminophen (Tylenol -) 650 mg PO Q6H PRN PRN Reason: FEVER Last Admin: 05/27/16 01:09 Dose: 650 mg Heparin Sodium (Porcine) (Heparin -) 5,000 unit SQ BID NELLY Last Admin: 05/28/16 09:34 Dose: 5,000 unit Piperacillin Sod/Tazobactam Sod (Zosyn 4.5gm Ivpb (Pre-Docked)) 100 mls @ 200 mls/hr IVPB Q8H-IV NELLY Last Admin: 05/28/16 09:35 Dose: 200 mls/hr - Objective Vital Signs: Vital Signs Temperature 97.8 F 05/28/16 09:00 Pulse Rate 78 05/28/16 09:00 Respiratory Rate 20 05/28/16 09:00 Blood Pressure 95/65 05/28/16 09:00 O2 Sat by Pulse Oximetry (%) 100 05/28/16 09:00 Constitutional: Yes: No Distress, Calm Cardiovascular: Yes: Regular Rate and Rhythm Respiratory: Yes: Regular, CTA Bilaterally Gastrointestinal: Yes: Normal Bowel Sounds, Soft Musculoskeletal: Yes: WNL Extremities: Yes: WNL Neurological: Yes: Alert, Oriented Psychiatric: Yes: Alert Labs: CBC, BMP 05/28/16 06:00 05/28/16 06:00 INR, PTT INR 1.12 (0.82-1.09) 05/25/16 06:00 Assessment/Plan Problem List - Problems (1) Leukopenia Code(s): D72.819 - DECREASED WHITE BLOOD CELL COUNT, UNSPECIFIED Qualifiers: Neutropenia type: unspecified (2) Common bile duct dilatation Code(s): K83.8 - OTHER SPECIFIED DISEASES OF BILIARY TRACT plan i will now stop abx and watch her rest as per gi/primary
--- NOTE | 2016-05-28 20:32 | PN ---
Progress Note, Physician History of Present Illness: Pt is asymptomatic No abdominal pain - Current Medication List Current Medications: Active Medications Acetaminophen (Tylenol -) 650 mg PO Q6H PRN PRN Reason: FEVER Last Admin: 05/27/16 01:09 Dose: 650 mg Heparin Sodium (Porcine) (Heparin -) 5,000 unit SQ BID NELLY Last Admin: 05/28/16 09:34 Dose: 5,000 unit - Objective Vital Signs: Vital Signs Temperature 98.4 F 05/28/16 17:11 Pulse Rate 73 05/28/16 17:11 Respiratory Rate 18 05/28/16 17:11 Blood Pressure 105/82 05/28/16 17:11 O2 Sat by Pulse Oximetry (%) 100 05/28/16 09:00 Constitutional: Yes: No Distress Neck: Yes: Supple Cardiovascular: Yes: WNL, Regular Rate and Rhythm Respiratory: Yes: WNL, Regular, CTA Bilaterally Gastrointestinal: Yes: WNL, Normal Bowel Sounds, Soft Labs: CBC, BMP 05/28/16 06:00 05/28/16 06:00 INR, PTT INR 1.12 (0.82-1.09) 05/25/16 06:00 Problem List - Problems (1) Leukopenia Assessment/Plan: WBC improved today ?Probable viral etiology Long d/w pt andf her that she will need close f/u Will also need to f/u with heme Dr. Ramsey as outpt DC planning for am after labs are done Code(s): D72.819 - DECREASED WHITE BLOOD CELL COUNT, UNSPECIFIED Qualifiers: Neutropenia type: unspecified (2) Abdominal pain Assessment/Plan: Pt to have further w/u as outpt including ERCP/EUS due to leukopenia while hospitalized Will follow w/ GI as outpt Code(s): R10.9 - UNSPECIFIED ABDOMINAL PAIN Qualifiers: Abdominal location: left lower quadrant Qualified Code(s): R10.32 - Left lower quadrant pain (3) Elevated LFTs Assessment/Plan: Cont to monitor Check labs in am Code(s): R79.89 - OTHER SPECIFIED ABNORMAL FINDINGS OF BLOOD CHEMISTRY
[2016-05-29] MEDS: HEPARIN NA (PORCINE) 5,000 UNITS/ML 1ML VIAL SQ SCH (09:21)
[2016-05-29 13:49] VITALS: BP 95/66
[2016-05-29 14:31] VITALS: PULSE 75; TEMP 97.6
--- NOTE | 2016-05-29 16:02 | PN ---
Progress Note, Physician History of Present Illness: doing well no complaints - Current Medication List Current Medications: Active Medications Acetaminophen (Tylenol -) 650 mg PO Q6H PRN PRN Reason: FEVER Last Admin: 05/27/16 01:09 Dose: 650 mg Heparin Sodium (Porcine) (Heparin -) 5,000 unit SQ BID NELLY Last Admin: 05/29/16 09:21 Dose: 5,000 unit - Objective Vital Signs: Vital Signs Temperature 97.6 F 05/29/16 14:29 Pulse Rate 75 05/29/16 14:29 Respiratory Rate 20 05/29/16 14:29 Blood Pressure 95/66 05/29/16 09:00 O2 Sat by Pulse Oximetry (%) 99 05/29/16 09:00 Constitutional: Yes: No Distress, Calm Cardiovascular: Yes: Regular Rate and Rhythm Respiratory: Yes: Regular, CTA Bilaterally Gastrointestinal: Yes: Normal Bowel Sounds, Soft Musculoskeletal: Yes: WNL Extremities: Yes: WNL Neurological: Yes: Alert, Oriented Psychiatric: Yes: Alert Labs: CBC, BMP 05/28/16 06:00 05/28/16 06:00 INR, PTT INR 1.12 (0.82-1.09) 05/25/16 06:00 Assessment/Plan Problem List - Problems (1) Leukopenia Code(s): D72.819 - DECREASED WHITE BLOOD CELL COUNT, UNSPECIFIED Qualifiers: Neutropenia type: unspecified (2) Common bile duct dilatation Code(s): K83.8 - OTHER SPECIFIED DISEASES OF BILIARY TRACT (2) Abdominal pain Code(s): R10.9 - UNSPECIFIED ABDOMINAL PAIN Qualifiers: Abdominal location: left lower quadrant Qualified Code(s): R10.32 - Left lower quadrant pain (3) Elevated LFTs Code(s): R79.89 - OTHER SPECIFIED ABNORMAL FINDINGS OF BLOOD CHEMISTRY plan stable off of abx continue as per medicine team
== END 2016-05-29 17:35 | disposition home or self-care (01) ==
LOC: JER 12:10 → JERBED 18:31 → UNDOADMOB 18:31 → J7W 19:46 → JERBED 19:46 → J7W 05-23 01:52 → INTOOBSV 05-23 01:52 → JERBED 05-23 01:52 → OBSVTOIN 05-23 01:52 → J7W 05-27 11:38
PROVIDERS: ADMIT Internal Medicine; ATTEND Internal Medicine
DX: K83.8 Other specified diseases of biliary tract (principal); D72.819 Decreased white blood cell count, unspecified
CPT/HCPCS: 36415; 71020-TC; 74182-TC; 76705-TC; 80053; 81003; 82105; 82378; 82607; 82746; 83605; 83615; 83690; 84439; 84443; 85025; 85027; 85610; 85651; 85730; 86038; 86140; 86301; 86308; 86431; 86704; 86705; 86706; 86707; 86803; 87040; 87086; 87254; 87340; 87350; 87389; 87804; 99284-25; G0008; G0378; J1644; Q2037

== ENCOUNTER 2017-01-02 11:57 | Emergency (ER) | payer OTHER ==
[2017-01-02 12:09] VITALS: BMI 27.6
--- NOTE | 2017-01-02 15:19 | PDOC ---
History of Present Illness - General History Source: Patient, Old Records Exam Limitations: No Limitations - History of Present Illness Initial Comments: 01/02/17 15:54 The patient is a 51 year old female with no significant past medical history s/ p ERCP three days ago who presents to the ED with complaints of pain since her procedure. She states that since her procedure she has been experiencing a constant, sharp pain at her epigastrium that radiates to her RUQ and towards her back. The pain has no modifying factors and has no associated symptoms. She states she has only been able to eat in small amounts and denies any change in bowel movements. She denies any fever, chills, nausea, vomiting, diarrhea, cough , SOB, CP, or urinary symptoms. She states she follows up with a GI doctor at [facility]. <Mary Chahal - Last Filed: 01/02/17 16:50> <Vik Caraballo - Last Filed: 01/04/17 08:18> - General Chief Complaint: Pain Stated Complaint: POST-OP/ ABD PAIN Time Seen by Provider: 01/02/17 15:03 Past History <Mary Chahal - Last Filed: 01/02/17 16:50> - Past Medical History Anemia: Yes Asthma: No Cancer: No Cardiac Disorders: No CVA: No COPD: No CHF: No Dementia: No Diabetes: No GI Disorders: Yes (CONSTIPATION, PANCRATITIS) Disorders: No HTN: No Hypercholesterolemia: No Liver Disease: No Seizures: No Thyroid Disease: No - Surgical History Abdominal Surgery: Yes Appendectomy: No Cardiac Surgery: No Cholecystectomy: Yes Lung Surgery: No Neurologic Surgery: No Orthopedic Surgery: No - Immunization History Immunization Up to Date: Yes - Psycho/Social/Smoking Cessation Hx Anxiety: No Suicidal Ideation: No Smoking Status: No Smoking History: Never smoked Have you smoked in the past 12 months: No Number of Cigarettes Smoked Daily: 0 Information on smoking cessation initiated: No Hx Alcohol Use: No Drug/Substance Use Hx: No Substance Use Type: None Hx Substance Use Treatment: No <Vik Caraballo - Last Filed: 01/04/17 08:18> - Past Medical History Allergies/Adverse Reactions: Allergies Allergy/AdvReac Type Severity Reaction Status Date / Time morphine Allergy Severe palpitation Verified 01/02/17 12:04 s Home Medications: Ambulatory Orders Oxycodone HCl/Acetaminophen [Percocet 5-325 mg Tablet] 1 - 2 tab PO Q6H #20 tablet MDD 4 01/02/17 Review of Systems - Review of Systems Able to Perform ROS?: Yes Comments:: 01/02/17 15:54 GENERAL/CONSTITUTIONAL: No fever or chills. No weakness. HEAD, EYES, EARS, NOSE AND THROAT: No change in vision. No ear pain or discharge. No sore throat. CARDIOVASCULAR: No chest pain or shortness of breath. RESPIRATORY: No cough, wheezing, or hemoptysis. GASTROINTESTINAL: Present: RUQ pain and epigastric pain No nausea, vomiting, diarrhea or constipation. GENITOURINARY: No dysuria, frequency, or change in urination. MUSCULOSKELETAL: No joint or muscle swelling or pain. No neck or back pain. SKIN: No rash NEUROLOGIC: No headache, vertigo, loss of consciousness, or change in strength/ sensation. ENDOCRINE: No increased thirst. No abnormal weight change. HEMATOLOGIC/LYMPHATIC: No anemia, easy bleeding, or history of blood clots. ALLERGIC/IMMUNOLOGIC: No hives or skin allergy. All Other Systems: Reviewed and Negative <Mary Chahal - Last Filed: 01/02/17 16:50> *Physical Exam - Vital Signs Last Vital Signs Temp Pulse Resp BP Pulse Ox 98.1 F 68 18 101/64 100 01/02/17 12:05 01/02/17 12:05 01/02/17 12:05 01/02/17 12:05 01/02/17 12:05 - Physical Exam Comments: 01/02/17 15:55 GENERAL: Awake, alert, and fully oriented, in no acute distress HEAD: No signs of trauma EYES: PERRLA, EOMI, sclera anicteric, conjunctiva clear ENT: Auricles normal inspection, hearing grossly normal, nares patent, oropharynx clear without exudates. Moist mucosa NECK: Normal ROM, supple, no lymphadenopathy, JVD, or masses LUNGS: Breath sounds equal, clear to auscultation bilaterally. No wheezes, and no crackles HEART: Regular rate and rhythm, normal S1 and S2, no murmurs, rubs or gallops ABDOMEN: Soft, tender to epigastrium and RUQ on palpation, normoactive bowel sounds. No guarding, no rebound. No masses EXTREMITIES: Normal range of motion, no edema. No clubbing or cyanosis. No cords, erythema, or tenderness NEUROLOGICAL: Cranial nerves II through XII grossly intact. Normal speech, normal gait SKIN: Warm, Dry, normal turgor, no rashes or lesions noted. <EnedinadiannaMary - Last Filed: 01/02/17 16:50> - Vital Signs Last Vital Signs Temp Pulse Resp BP Pulse Ox 98.1 F 68 18 101/64 100 01/02/17 12:05 01/02/17 12:05 01/02/17 12:05 01/02/17 12:05 01/02/17 12:05 <Vik Caraballo - Last Filed: 01/04/17 08:18> Heart Score/ECG Review - ECG Intrepretation Comment:: 01/02/17 16:50 ECG obtained at 16:33 Normal sinus at 69 bpm Left axis deviation, low voltage QRS, cannot rule out anterior infarct, T wave abnormality <FelaMary - Last Filed: 01/02/17 16:50> ED Treatment Course - LABORATORY CBC & Chemistry Diagram: 01/02/17 16:10 01/02/17 16:10 - Medications Given in the ED: ED Medications Discontinued Medications Generic Name Dose Route Start Last Admin Trade Name Freq PRN Reason Stop Dose Admin Hydromorphone HCl 2 mg 01/02/17 15:40 01/02/17 15:42 Dilaudid Injection - IVPUSH 01/02/17 15:41 2 mg ONCE ONE Administration Ondansetron HCl 4 mg 01/02/17 15:40 01/02/17 15:42 Zofran Injection IVPUSH 01/02/17 15:41 4 mg ONCE ONE Administration <dilipdiannaMary - Last Filed: 01/02/17 16:50> - LABORATORY CBC & Chemistry Diagram: 01/02/17 16:10 01/02/17 16:10 <Vik Caraballo - Last Filed: 01/04/17 08:18> *DC/Admit/Observation/Transfer - Attestations Scribe Attestion: 01/02/17 15:56 Documentation prepared by Mary Chahal, acting as biomedical engineering aide for Vik Caraballo DO. <Mary Chahal - Last Filed: 01/02/17 16:50> - Attestations Physician Attestion: 01/02/17 15:19 I, Dr. Vik Caraballo, attest that this document has been prepared under my direction and personally reviewed by me in its entirety. I further attest, that it accurately reflects all work, treatment, procedures and medical decision -making performed by me. <Vik Caraballo - Last Filed: 01/04/17 08:18> Diagnosis at time of Disposition: Elevated LFTs Abdominal pain Qualifiers: Abdominal location: epigastric Qualified Code(s): R10.13 - Epigastric pain - Prescriptions Prescriptions: Oxycodone HCl/Acetaminophen [Percocet 5-325 mg Tablet] 1 - 2 tab PO Q6H #20 tablet MDD 4 - Referrals Referrals: Tim Schroeder MD [Staff Physician] - Clement Marti MD [Primary Care Provider] - - Patient Instructions Printed Discharge Instructions: DI for Abdominal Pain-Adult Additional Instructions: Please follow with your GI doctor or the referred to you tonight. Print Language: AMERICAN
[2017-01-02] MEDS ORDERED: HYDROmorphone HCL CARPU-JECT 2 MG/1 ML DISP.SYRIN IVPUSH ONE (15:40)
[2017-01-02] MEDS ORDERED: ONDANSETRON 4 MG/2 ML VIAL IVPUSH ONE (15:40)
[2017-01-02] MEDS ORDERED: HYDROmorphone HCL CARPU-JECT 2 MG/1 ML DISP.SYRIN ONE (15:44)
[2017-01-02] MEDS ORDERED: ONDANSETRON 4 MG/2 ML VIAL ONE ×2 (15:44→19:39)
[2017-01-02 16:36] LABS: MCH 30.2 pg (25.7-33.7); MCHC 33.2 g/dl (32.0-36.0); MEAN PLT VOLUME 8.8 fl (7.5-11.1); PLATELET COUNT 241 K/MM3 (134-434); RDW 15.3 % (11.6-15.6); WHITE BLOOD COUNT 4.2 K/mm3 (4.0-10.0)
[2017-01-02 16:57] LABS: INR 1.02 (0.82-1.09); PROTHROMBIN TIME (PATIENT) 11.2 SEC (9.98-11.88)
[2017-01-02 17:13] LABS: ALK PHOS 142 U/L (45-117); ANION GAP 8 (8-16); BILIRUBIN,TOTAL 0.3 mg/dL (0.2-1.0); CALCIUM 9.6 mg/dL (8.5-10.1); CO2 29 mmol/L (21-32); CREATININE 0.5 mg/dL (0.55-1.02); GLUCOSE,RANDOM 94 mg/dL (74-106); SGOT/AST 50 U/L (15-37); SGPT/ALT 72 U/L (12-78); TOT PROT 7.5 g/dl (6.4-8.2)
[2017-01-02 17:14] LABS: CPK 113 IU/L (26-192); TROPONIN I < 0.02 ng/ml (0.00-0.05)
[2017-01-02 18:30] LABS: BASOPHIL 0.4 % (0-2.0); EOSINOPHIL 1.7 % (0-4.5); NEUTROPHILS 63.6 % (42.8-82.8)
[2017-01-02 19:15] VITALS: BP 123/81; PULSE 74; TEMP 97.6
--- NOTE | 2017-01-02 20:27 | PDOC ---
*Physical Exam - Vital Signs Last Vital Signs Temp Pulse Resp BP Pulse Ox 97.6 F 74 18 123/81 99 01/02/17 19:14 01/02/17 19:14 01/02/17 19:14 01/02/17 19:14 01/02/17 19:14 ED Treatment Course - LABORATORY CBC & Chemistry Diagram: 01/02/17 16:10 01/02/17 16:10 - ADDITIONAL ORDERS Additional order review: Laboratory Results 01/02/17 01/02/17 01/02/17 16:34 16:10 16:10 INR 1.02 Sodium 141 Potassium 4.1 Chloride 104 Carbon Dioxide 29 Anion Gap 8 BUN 12 Creatinine 0.5 L Creat Clearance w eGFR > 60 Random Glucose 94 Calcium 9.6 Total Bilirubin 0.3 AST 50 H D ALT 72 D Alkaline Phosphatase 142 H Creatine Kinase 113 Troponin I < 0.02 Total Protein 7.5 Albumin 4.0 Lipase 214 01/02/17 16:10 RBC 4.82 MCV 91.0 MCHC 33.2 RDW 15.3 MPV 8.8 Neutrophils % 63.6 D Lymphocytes % 26.3 D Monocytes % 8.0 Eosinophils % 1.7 Basophils % 0.4 - Medications Given in the ED: ED Medications Discontinued Medications Generic Name Dose Route Start Last Admin Trade Name Freq PRN Reason Stop Dose Admin Hydromorphone HCl 2 mg 01/02/17 15:40 01/02/17 15:42 Dilaudid Injection - IVPUSH 01/02/17 15:41 2 mg ONCE ONE Administration Ondansetron HCl 4 mg 01/02/17 15:40 01/02/17 15:42 Zofran Injection IVPUSH 01/02/17 15:41 4 mg ONCE ONE Administration *DC/Admit/Observation/Transfer Diagnosis at time of Disposition: Elevated LFTs Abdominal pain Qualifiers: Abdominal location: epigastric Qualified Code(s): R10.13 - Epigastric pain - Discharge Dispostion Disposition: HOME Condition at time of disposition: Stable Admit: No - Referrals Referrals: Clement Marti MD [Primary Care Provider] - Tim Schroeder MD [Staff Physician] - - Patient Instructions Printed Discharge Instructions: DI for Abdominal Pain-Adult Additional Instructions: Please follow with your GI doctor or the referred to you tonight. Print Language: YI - Post Discharge Activity
--- NOTE | 2017-01-03 11:51 | EKG ---
Test Reason : Blood Pressure : / mmHG Vent. Rate : 069 BPM Atrial Rate : 069 BPM P-R Int : 130 ms QRS Dur : 084 ms QT Int : 396 ms P-R-T Axes : 027 -76 020 degrees QTc Int : 424 ms NORMAL SINUS RHYTHM LEFT ANTERIOR FASCICULAR BLOCK INCOMPLETE RBBB LEFT ATRIAL ABNORMALITYST-T ABNORMALITIES IN PRECORDIAL LEADS ABNORMAL ECG WHEN COMPARED WITH ECG OF 20-AUG-2012 15:16, T WAVE INVERSION NOW EVIDENT IN ANTEROLATERAL LEADS REPEAT EKG IF CLINICALLY INDICATED Confirmed by RICHARDSON ALVAREZ MD ([id number] on 01/03/2017 11:51:15 AM Referred By: Confirmed By:RICHARDSON ALVAREZ MD
== END 2017-01-02 20:32 | disposition home or self-care (01) ==
LOC: JER 11:57
PROC: 3E033NZ Introduction of Analgesics, Hypnotics, Sedatives into Peripheral Vein, Percutaneous Approach (ICD-10-PCS; principal; 2017-01-02)
PROC: 3E033GC Introduction of Other Therapeutic Substance into Peripheral Vein, Percutaneous Approach (ICD-10-PCS; 2017-01-02)
DX: G89.18 Other acute postprocedural pain (principal); R74.8 Abnormal levels of other serum enzymes
CPT/HCPCS: 74177-TC; 80053; 83690; 84484; 85025; 85610; 93005; 93010; 99283-25

== ENCOUNTER 2017-02-06 14:28 | Day surgery (SDC) | payer OTHER ==
[2017-02-06] MEDS ORDERED: IRON SUCROSE INJECTION 100 MG in SODIUM CHLORIDE 100 ML IVPB ONE (14:45)
[2017-02-06] MEDS ORDERED: CYANOCOBALAMIN (VITAMIN B-12) 1000 MCG/1 ML VIAL IM ONE (14:46)
--- NOTE | 2017-02-06 15:07 | HP ---
Satellite [facility] - Chief Complaint Chief Complaint: Patient seen and examined. Denies any complaints/ Asymptomatic today. 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) Pulmonary: Yes: Other (recent URI for which patient took Tamiflu) Gastrointestinal: Yes: Pancreatitis Hepatobiliary: Yes: Other (hx of cholecystectomy 5 years earlier) ...LMP: 10/03/12 Heme/Onc: Yes: Other (received transfusion of packed cells several years earlier ) - Current Medications Current Medications: Home Medications Medication Instructions Recorded Oxycodone HCl/Acetaminophen 1 - 2 tab PO Q6H #20 tablet MDD 4 01/02/17 [Percocet 5-325 mg Tablet] Satellite Physical Exam - Physical Examination General Appearance: Alert & Oriented x3 Lung: Clear to auscultation, Normal air movement Heart: Regular rate & rhythm, Normal S1, Normal S2 Abdomen: Soft, No tenderness Extremities: No edema Neurological: Intact Satellite Impression/Plan - Impression/Plan Impression: Iron deficiency anemia: IV iron. will check iron studies next visit. B12 deficiency--pernicious anemia--for B12 injection
[2017-02-06 16:48] VITALS: TEMP 97.1
[2017-02-06 16:49] VITALS: BP 104/74; PULSE 68
== END 2017-02-06 15:15 | disposition home or self-care (01) ==
LOC: JONCCHEMO 14:28 → J7W 14:28 → JONCCHEMO 15:15
PROVIDERS: ATTEND Internal Medicine Hematology & Oncology
PROC: 3E033GC Introduction of Other Therapeutic Substance into Peripheral Vein, Percutaneous Approach (ICD-10-PCS; principal; 2017-02-06)
DX: D50.9 Iron deficiency anemia, unspecified (principal)
CPT/HCPCS: 96365; 96417; J1756

== ENCOUNTER 2017-03-06 07:20 | Day surgery (SDC) | payer OTHER ==
[2017-03-06] MEDS ORDERED: IRON SUCROSE INJECTION 100 MG in SODIUM CHLORIDE 100 ML IVPB ONE (10:00)
[2017-03-06] MEDS ORDERED: CYANOCOBALAMIN (VITAMIN B-12) 1000 MCG/1 ML VIAL IM ONE ×2 (12:00→15:45)
[2017-03-06 16:18] LABS: BASOPHIL 0.5 % (0-2.0); EOSINOPHIL 2.8 % (0-4.5); MCH 31.2 pg (25.7-33.7); MCHC 34.5 g/dl (32.0-36.0); MEAN CELL VOLUME 90.3 fl (80-96); MEAN PLT VOLUME 9.2 fl (7.5-11.1); NEUTROPHILS 68.5 % (42.8-82.8); PLATELET COUNT 229 K/MM3 (134-434); RDW 14.7 % (11.6-15.6); WHITE BLOOD COUNT 5.1 K/mm3 (4.0-10.0)
[2017-03-06 16:55] LABS: ALBUMIN 3.5 g/dl (3.4-5.0); ANION GAP 9 (8-16); BILIRUBIN,TOTAL 0.3 mg/dL (0.2-1.0); CALCIUM 8.8 mg/dL (8.5-10.1); CO2 24 mmol/L (21-32); CREATININE 0.5 mg/dL (0.55-1.02); GLUCOSE,RANDOM 117 mg/dL (74-106); SGOT/AST 36 U/L (15-37); SGPT/ALT 62 U/L (12-78); TOT PROT 7.2 g/dl (6.4-8.2)
[2017-03-06 16:57] LABS: ALK PHOS 149 U/L (45-117); FERRITIN 47.996 ng/ml (6.9-282.5)
[2017-03-06 17:32] VITALS: BP 116/91; PULSE 70; TEMP 98.2
--- NOTE | 2017-03-06 22:23 | HP ---
Satellite H - Chief Complaint Chief Complaint: Here for f/u of iron deficency anemia, B12 deficiency. Denies any symptoms. 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) Pulmonary: Yes: Other (recent URI for which patient took Tamiflu) Gastrointestinal: Yes: Pancreatitis Hepatobiliary: Yes: Other (hx of cholecystectomy 5 years earlier) ...LMP: 10/03/12 Heme/Onc: Yes: Other (received transfusion of packed cells several years earlier ) - Current Medications Current Medications: Home Medications Medication Instructions Recorded Oxycodone HCl/Acetaminophen 1 - 2 tab PO Q6H #20 tablet MDD 4 01/02/17 [Percocet 5-325 mg Tablet] Satellite Physical Exam - Physical Examination Vital Signs: Vital Signs Period Temp Pulse Resp BP Sys/Thompson Pulse Ox Last 24 Hr 98.2 F-98.2 F 70-70 18-18 116-116/91-91 General Appearance: Well Nourished, Well Developed, Alert & Oriented x3 Lung: Clear to auscultation, Normal air movement Heart: Regular rate & rhythm, Normal S1, Normal S2 Abdomen: Soft, No tenderness, Normal bowel sounds Extremities: No edema, No cyanosis Neurological: Intact Satellite Impression/Plan - Impression/Plan Impression: Iron deficiency anemia. Pernicious anemia. Elevated ESR/? autoimmune inflammation. IV iron. B12. f/u 4 weeks
[2017-03-08 08:08] LABS: SERUM IRON 103 ug/dL (27-159); TOTAL IRON BINDING CAPACITY 332 ug/dL (250-450); UIBC 229 ug/dL (131-425)
== END 2017-03-06 16:30 | disposition home or self-care (01) ==
LOC: JONCNONCHE 07:20 → J7W 15:00 → JONCNONCHE 16:30
PROVIDERS: ATTEND Internal Medicine Hematology & Oncology
PROC: 3E033GC Introduction of Other Therapeutic Substance into Peripheral Vein, Percutaneous Approach (ICD-10-PCS; principal; 2017-03-06)
PROC: 3E013GC Introduction of Other Therapeutic Substance into Subcutaneous Tissue, Percutaneous Approach (ICD-10-PCS; 2017-03-06)
DX: D50.9 Iron deficiency anemia, unspecified (principal); K90.9 Intestinal malabsorption, unspecified
CPT/HCPCS: 36415; 80053; 82607; 82728; 83540; 83550; 85025; 96365; 96372; 96417; J1756

== ENCOUNTER 2019-07-20 15:24 | Emergency (ER) | payer OTHER ==
[2019-07-20 15:34] VITALS: BMI 27.1
[2019-07-20] MEDS ORDERED: FAMOTIDINE 20 MG/50 ML IVPB 20 MG/50 ML MG IVPB ONE ×2 (16:15→16:23)
[2019-07-20] MEDS ORDERED: SODIUM CHLORIDE 0.9% 500 ML INFUS.BAG IV ONE (16:15)
[2019-07-20] MEDS ORDERED: ACETAMINOPHEN 1000 MG/100 ML VIAL (NON FORMULARY) IVPB ONE (16:18)
[2019-07-20] MEDS ORDERED: ACETAMINOPHEN INJECTION 100 ML IVPB ONE (16:23)
--- NOTE | 2019-07-20 16:40 | PDOC ---
History of Present Illness <Karissa Matthews - Last Filed: 07/20/19 22:35> - General History Source: Patient Exam Limitations: No Limitations - History of Present Illness Initial Comments: 07/20/19 16:39 Patient is a 54-year-old female with history of cholecystectomy, pancreatitis, B12 deficiency here with epigastric pain radiating to the back x3 days. Patient states the pain is sharp waxing and waning pain 8/10 in the epigastrium, which radiates to the back and left chest. States she is familiar with this pain which she had prior to cholecystectomy. She has been taking Tylenol and Motrin for the pain with minimal relief. She has had no nausea, vomiting, fever, chills, dysuria. PMD: Dr. Marti PMHX; as above PSOCHX: neg etoh, drug, cig PFamHX: Noncontributory ALL: NKDA GENERAL/CONSTITUTIONAL: [No fever or chills. No weakness. No weight change.] HEAD, EYES, EARS, NOSE AND THROAT: [No change in vision. No ear pain or di scharge. No sore throat.] CARDIOVASCULAR: [(+) chest pain, (-) shortness of breath.] RESPIRATORY: [No cough, wheezing, or hemoptysis.] GASTROINTESTINAL: [No nausea, vomiting, diarrhea or constipation. No rectal bleeding.] GENITOURINARY: [No dysuria, frequency, or change in urination.] MUSCULOSKELETAL: [No joint or muscle swelling or pain. No neck or back pain.] SKIN AND BREASTS: [No rash or easy bruising.] NEUROLOGIC: [No headache, vertigo, loss of consciousness, or loss of sensation.] PSYCHIATRIC: [No depression or anxiety.] ENDOCRINE: [No increased thirst. No abnormal weight change.] HEMATOLOGIC/LYMPHATIC: [No anemia, easy bleeding, or history of blood clots.] ALLERGIC/IMMUNOLOGIC: [No hives or skin allergy. No latex allergy.] GENERAL: [The patient is awake, alert, and fully oriented, in moderate painful distress.] HEAD: [Normal with no signs of trauma.] EYES: [Pupils equal, round and reactive to light, extraocular movements intact, sclera anicteric, conjunctiva clear.] ENT: [Ears normal, nares patent, oropharynx clear without exudates. Moist mucous membranes.] NECK: [Normal range of motion, supple without lymphadenopathy, JVD, or masses.] LUNGS: [Breath sounds equal, clear to auscultation bilaterally. No wheezes, and no crackles.] HEART: [Regular rate and rhythm, normal S1 and S2 without murmur, rub.] ABDOMEN: [Soft, (+) tenderness epigastrum, normoactive bowel sounds. No guarding, no rebound. No masses.] EXTREMITIES: [Normal range of motion, no edema. No clubbing or cyanosis. No cords, erythema, or tenderness.] NEUROLOGICAL: [Cranial nerves II through XII grossly intact. Normal speech, normal gait.] PSYCH: [Normal mood, normal affect.] SKIN: [Warm, Dry, normal turgor, no rashes or lesions noted.] <Jhonathan Henry - Last Filed: 07/20/19 23:20> - General Chief Complaint: Pain Stated Complaint: STOMACH PAIN Past History <Karissa Matthews - Last Filed: 07/20/19 22:35> - Past Medical History Anemia: Yes Asthma: No Cancer: No Cardiac Disorders: No CVA: No COPD: No CHF: No Dementia: No Diabetes: No GI Disorders: Yes (CONSTIPATION, PANCRATITIS) Disorders: No HTN: No Hypercholesterolemia: No Liver Disease: No Seizures: No Thyroid Disease: No - Surgical History Abdominal Surgery: Yes Appendectomy: No Cardiac Surgery: No Cholecystectomy: Yes Lung Surgery: No Neurologic Surgery: No Orthopedic Surgery: No - Immunization History Immunization Up to Date: Yes - Psycho Social/Smoking Cessation Hx Smoking Status: No Smoking History: Never smoked Have you smoked in the past 12 months: No Number of Cigarettes Smoked Daily: 0 Hx Alcohol Use: No Drug/Substance Use Hx: No Substance Use Type: None Hx Substance Use Treatment: No <Jhonathan Henry - Last Filed: 07/20/19 23:20> - Past Medical History Allergies/Adverse Reactions: Allergies Allergy/AdvReac Type Severity Reaction Status Date / Time morphine Allergy Severe palpitation Verified 07/20/19 15:29 s Home Medications: Ambulatory Orders Oxycodone HCl/Acetaminophen [Percocet 5-325 mg Tablet] 1 - 2 tab PO Q6H #20 tablet MDD 4 01/02/17 Ibuprofen [Motrin -] 400 mg PO BID #28 tablet 12/25/17 Abd/GI Specific PMHX - Complaint Specific PMHX Pancreatitis: Yes <Jhonathan Henry - Last Filed: 07/20/19 23:20> *Physical Exam - Vital Signs Last Vital Signs Temp Pulse Resp BP Pulse Ox 98.6 F 88 18 113/81 99 07/20/19 15:30 07/20/19 15:30 07/20/19 15:30 07/20/19 15:30 07/20/19 15:30 <Karissa Matthews - Last Filed: 07/20/19 22:35> - Vital Signs Last Vital Signs Temp Pulse Resp BP Pulse Ox 98.6 F 88 18 113/81 99 07/20/19 15:30 07/20/19 15:30 07/20/19 15:30 07/20/19 15:30 07/20/19 15:30 <Jhonathan Henry - Last Filed: 07/20/19 23:20> Heart Score/ECG Review #1 ECG reviewed & interpreted by me at: 16:40 General ECG Interpretation: Sinus Rhythm, Normal Rate, Normal Intervals Compared to previous ECG there are: No significant change 07/20/19 16:52 EKG normal sinus rhythm at 75 bpm, no interval abnormalities, narrow QRS, ST and T wave segments and morphology normal. Nonspecific T wave abnormalities <Karissa Matthews - Last Filed: 07/20/19 22:35> ED Treatment Course - LABORATORY CBC & Chemistry Diagram: 07/20/19 16:31 07/20/19 16:31 - Medications Given in the ED: ED Medications Discontinued Medications Generic Name Dose Route Start Last Admin Trade Name Freq PRN Reason Stop Dose Admin Famotidine/Sodium Chloride 20 mg in 50 mls @ 100 mls/hr 07/20/19 16:15 07/20/19 16:37 Pepcid 20 Mg Premixed Ivpb - IVPB 07/20/19 16:44 100 mls/hr ONCE ONE Administration <Karissa Matthews - Last Filed: 07/20/19 22:35> - LABORATORY CBC & Chemistry Diagram: 07/20/19 16:31 07/20/19 16:31 <Jhonathan Henry - Last Filed: 07/20/19 23:20> Medical Decision Making - Medical Decision Making 07/20/19 16:51 The patient was seen and evaluated in conjunction with midlevel provider under my direct supervision, ancillary studies were reviewed. I agree with the plan as outlined with BAFFLE INSTALLER Toby Hugo. HPI, workup/dispo as outlined. VS reviewed, wnl. EKG normal sinus rhythm at 75 bpm, no interval abnormalities, narrow QRS, ST and T wave segments and morphology normal. Nonspecific T wave abnormalities NEG TROP, reassuring, less likely cardiac imaging Laboratory results are unremarkable, mild LFT elevation. no leukocytosis. Initial right upper quadrant ultrasound to check for retained biliary stones, patient with appropriately dilated CBD after cholecystectomy. No acute pathology is noted CT abdomen pelvis given persistent pain, acute appendicitis is noted. No surgery here, transfer for surgical consultation and management, monitor fever. IV abx, ceftriaxone and flagyl. NPO IVF. 07/20/19 20:27 07/20/19 22:35 <Karissa Matthews - Last Filed: 07/20/19 22:35> - Medical Decision Making 07/20/19 16:39 Patient is a 54-year-old female with history of cholecystectomy, pancreatitis, B12 deficiency here with epigastric pain radiating to the back x3 days. Patient states the pain is sharp waxing and waning pain 8/10 in the epigastrium, which radiates to the back and left chest. States she is familiar with this pain which she had prior to cholecystectomy. She has been taking Tylenol and Motrin for the pain with minimal relief. She has had no nausea, vomiting, fever, chills, dysuria. Symptoms consistent with pancreatitis Labs, EKG Tylenol IV for pain CT abdomen pelvis Reassess EKG SR at rate 75, left axis with T wave inversion III, V1 to V4 unchanged from 12/25/2017 Patient continue to be in pain given Dilaudid 1mg IV. Patient has nausea given Zofran 4mg IV Labs reviewed notes mild elevation in liver enzymes which has been chronic since 2017. Discussed with Dr. Matthews recommend patient sent for ultrasound. 07/20/19 20:39 Patient Full Name: YUNG ALCANTARA Patient Accession No: [id number] Patient : 1965 Reason for Exam: epigastric/ruq pain Referring Physician: Patient Name: QUINTON BARRAGAN THIS IS A PRELIMINARY REPORT FROM IMAGING PROGRAM ANALYST EXAM: Abdomen ultrasound Complete IMAGES: 81 DATE OF EXAM: 2019-07-20 18:56:34 REASON FOR EXAM: Epigastric/right upper quadrant pain COMPARISON: None. FINDINGS: Gallbladder surgically absent. *dilated common bile duct measuring 1.4 cm, more than usually seen after cholecystectomy. Limited evaluation of the pancreatic head and body is grossly unremarkable. The liver and spleen are unremarkable and without enlargement. Kidneys are within normal limits without hydronephrosis. THIS DOCUMENT HAS BEEN ELECTRONICALLY SIGNED James Silverman MD 07/20/2019 20:13 EST M.D. Please call Imaging Metal Die Finisher [phone] ([phone]) with questions. INTERPRETING RADIOLOGIST: James Silverman MD Electronically Signed: Jul 20, 2019 08:15PM EST Patient continue to be in pain given Toradol 30mg IV. Patient has intractable pain will consider admission. CT scan obtained revealing acute appendicitis. Will transfer patient to [facility] since there is no surgeon fashion coordinator. CT scan discussed with patient and are now willing to be transferred. 07/20/19 23:01 Case was discussed with surgery Dr. Gray who accepts for transfer. Also discussed with Dr. Dutton in the emergency room who accepted for transfer. <Jhonathan Henry - Last Filed: 07/20/19 23:20> Discharge <Karissa Matthews - Last Filed: 07/20/19 22:35> - Discharge Information Problems reviewed: Yes - Transfer to Acute Care Facility Receiving Facility [facility]: [facility] Accepting Physician:: Dr Gray and Dr. Dutton <Jhonathan Henry - Last Filed: 07/20/19 23:20> - Discharge Information Clinical Impression/Diagnosis: Abdominal pain Qualifiers: Abdominal location: unspecified location Qualified Code(s): R10.9 - Unspecified abdominal pain Acute appendicitis Qualifiers: Acute appendicitis type: unspecified acute appendicitis type Qualified Code(s): K35.80 - Unspecified acute appendicitis - Follow up/Referral Referrals: Clement Marti MD [Primary Care Provider] - - Patient Discharge Instructions - Post Discharge Activity
[2019-07-20 16:52] LABS: BASO % 0.6 % (0-2.0); EOS % 2.2 % (0-4.5); HEMATOCRIT 42.2 % (32.4-45.2); HEMOGLOBIN 14.5 GM/dL (10.7-15.3); MCH 31.4 pg (25.7-33.7); MCHC 34.4 g/dl (32.0-36.0); MEAN CELL VOLUME 91.3 fl (80-96); MONO % 7.7 % (3.8-10.2); NEUT % 63.5 % (42.8-82.8); PLATELET COUNT 235 K/MM3 (134-434); RBC 4.62 M/mm3 (3.60-5.2); RDW 13.6 % (11.6-15.6); WHITE BLOOD COUNT 4.8 K/mm3 (4.0-10.0)
[2019-07-20 17:28] LABS: ALBUMIN 3.8 g/dl (3.4-5.0); ALK PHOS 159 U/L (45-117); ANION GAP 6 MMOL/L (8-16); BILIRUBIN,TOTAL 0.4 mg/dL (0.2-1); BLOOD UREA NITROGEN 10.7 mg/dL (7-18); CALCIUM 9.2 mg/dL (8.5-10.1); CHLORIDE 110 mmol/L (98-107); CO2 26 mmol/L (21-32); CREATININE 0.6 mg/dL (0.55-1.3); GLUCOSE,RANDOM 97 mg/dL (74-106); LIPASE 149 U/L (73-393); SGOT/AST 56 U/L (15-37); SGPT/ALT 72 U/L (13-61); SODIUM 142 mmol/L (136-145); TOT PROT 7.7 g/dl (6.4-8.2)
[2019-07-20] MEDS ORDERED: HYDROmorphone HCL CARPU-JECT 2 MG/1 ML DISP.SYRIN IVPUSH ONE (18:06)
[2019-07-20] MEDS ORDERED: HYDROmorphone HCl 2 MG/ML VIAL ONE (18:23)
[2019-07-20] MEDS ORDERED: ONDANSETRON 4 MG/2 ML VIAL IVPUSH ONE (19:25)
[2019-07-20] MEDS ORDERED: ONDANSETRON 4 MG/2 ML VIAL ONE (19:37)
[2019-07-20] MEDS ORDERED: KETOROLAC TROMETHAMINE 30 MG/1 ML VIAL IVPUSH ONE (20:10)
[2019-07-20] MEDS ORDERED: KETOROLAC TROMETHAMINE 30 MG/1 ML VIAL ONE (20:26)
[2019-07-20] MEDS ORDERED: CEFTRIAXONE 1,000 MG in DEXTROSE 5%-WATER - 50 ML IVPB ONE (22:36)
[2019-07-20] MEDS ORDERED: CEFTRIAXONE 1 GM/50 ML BAG ONE (22:39)
[2019-07-20 23:10] VITALS: BP 110/75; PULSE 78; TEMP 98.1
--- NOTE | 2019-07-20 23:48 | PDOC ---
*Physical Exam - Vital Signs Last Vital Signs Temp Pulse Resp BP Pulse Ox 98.1 F 78 20 110/75 100 07/20/19 23:10 07/20/19 23:10 07/20/19 23:10 07/20/19 23:10 07/20/19 23:10 <Jhonathan Henry - Last Filed: 07/20/19 23:48> - Vital Signs Last Vital Signs Temp Pulse Resp BP Pulse Ox 98.1 F 78 20 110/75 100 07/20/19 23:10 07/20/19 23:10 07/20/19 23:10 07/20/19 23:10 07/20/19 23:10 <Karissa Matthews - Last Filed: 07/22/19 20:11> ED Treatment Course - LABORATORY CBC & Chemistry Diagram: 07/20/19 16:31 07/20/19 16:31 - ADDITIONAL ORDERS Additional order review: Laboratory Results 07/20/19 16:31 Sodium 142 Potassium 5.0 Chloride 110 H Carbon Dioxide 26 Anion Gap 6 L BUN 10.7 Creatinine 0.6 Est GFR (CKD-EPI)AfAm 118.93 Est GFR (CKD-EPI)NonAf 102.61 Random Glucose 97 Calcium 9.2 Total Bilirubin 0.4 AST 56 H ALT 72 H Alkaline Phosphatase 159 H Troponin I < 0.02 Total Protein 7.7 Albumin 3.8 Lipase 149 07/20/19 16:31 RBC 4.62 MCV 91.3 MCHC 34.4 RDW 13.6 MPV 9.0 Neutrophils % 63.5 Lymphocytes % 26.0 Monocytes % 7.7 Eosinophils % 2.2 D Basophils % 0.6 - RADIOLOGY Radiology Studies Ordered: Category Date Time Status ABDOMEN & PELVIS CT WITH CONTR [CT] Stat CT Scan 07/20/19 20:46 Completed ABDOMEN US [US] Stat Ultrasound 07/20/19 18:24 Completed - Medications Given in the ED: ED Medications Discontinued Medications Generic Name Dose Route Start Last Admin Trade Name Freq PRN Reason Stop Dose Admin Acetaminophen 1,000 mg 07/20/19 16:18 07/20/19 16:55 Ofirmev Injection - IVPB 07/20/19 16:19 1,000 mg ONCE ONE Administration Hydromorphone HCl 1 mg 07/20/19 18:06 07/20/19 18:31 Dilaudid Injection - IVPUSH 07/20/19 18:07 1 mg ONCE ONE Administration Famotidine/Sodium Chloride 20 mg in 50 mls @ 100 mls/hr 07/20/19 16:15 07/20/19 16:37 Pepcid 20 Mg Premixed Ivpb - IVPB 07/20/19 16:44 100 mls/hr ONCE ONE Administration Ceftriaxone Sodium 1,000 mg/ 50 mls @ 100 mls/hr 07/20/19 22:36 07/20/19 22:52 Dextrose IVPB 07/20/19 23:05 100 mls/hr ONCE ONE Administration Metronidazole 500 mg in 100 mls @ 100 mls/hr 07/20/19 22:36 07/20/19 23:16 Flagyl 500mg Premixed Ivpb - IVPB 07/20/19 23:35 100 mls/hr ONCE ONE Administration Ketorolac Tromethamine 30 mg 07/20/19 20:10 07/20/19 20:25 Toradol Injection - IVPUSH 07/20/19 20:11 30 mg ONCE ONE Administration Ondansetron HCl 4 mg 07/20/19 19:25 07/20/19 19:44 Zofran Injection IVPUSH 07/20/19 19:26 4 mg ONCE ONE Administration Sodium Chloride 1,000 ml 07/20/19 16:15 07/20/19 16:55 Normal Saline - IV 07/20/19 16:16 1,000 ml ONCE ONE Administration <Jhonathan Henry - Last Filed: 07/20/19 23:48> - LABORATORY CBC & Chemistry Diagram: 07/20/19 16:31 07/20/19 16:31 - ADDITIONAL ORDERS Additional order review: 07/20/19 16:31 RBC 4.62 MCV 91.3 MCHC 34.4 RDW 13.6 MPV 9.0 Neutrophils % 63.5 Lymphocytes % 26.0 Monocytes % 7.7 Eosinophils % 2.2 D Basophils % 0.6 - Medications Given in the ED: ED Medications Discontinued Medications Generic Name Dose Route Start Last Admin Trade Name Freq PRN Reason Stop Dose Admin Acetaminophen 1,000 mg 07/20/19 16:18 07/20/19 16:55 Ofirmev Injection - IVPB 07/20/19 16:19 1,000 mg ONCE ONE Administration Hydromorphone HCl 1 mg 07/20/19 18:06 07/20/19 18:31 Dilaudid Injection - IVPUSH 07/20/19 18:07 1 mg ONCE ONE Administration Famotidine/Sodium Chloride 20 mg in 50 mls @ 100 mls/hr 07/20/19 16:15 07/20/19 16:37 Pepcid 20 Mg Premixed Ivpb - IVPB 07/20/19 16:44 100 mls/hr ONCE ONE Administration Ceftriaxone Sodium 1,000 mg/ 50 mls @ 100 mls/hr 07/20/19 22:36 07/20/19 22:52 Dextrose IVPB 07/20/19 23:05 100 mls/hr ONCE ONE Administration Metronidazole 500 mg in 100 mls @ 100 mls/hr 07/20/19 22:36 07/20/19 23:16 Flagyl 500mg Premixed Ivpb - IVPB 07/20/19 23:35 100 mls/hr ONCE ONE Administration Ketorolac Tromethamine 30 mg 07/20/19 20:10 07/20/19 20:25 Toradol Injection - IVPUSH 07/20/19 20:11 30 mg ONCE ONE Administration Ondansetron HCl 4 mg 07/20/19 19:25 07/20/19 19:44 Zofran Injection IVPUSH 07/20/19 19:26 4 mg ONCE ONE Administration Sodium Chloride 1,000 ml 07/20/19 16:15 07/20/19 16:55 Normal Saline - IV 07/20/19 16:16 1,000 ml ONCE ONE Administration <Karissa Matthews - Last Filed: 07/22/19 20:11> Medical Decision Making - Medical Decision Making 07/22/19 20:11 Vital Signs Temp Pulse Resp BP Pulse Ox 98.1 F 78 20 110/75 100 07/20/19 23:10 07/20/19 23:10 07/20/19 23:10 07/20/19 23:10 07/20/19 23:10 The patient was seen and evaluated in conjunction with midlevel provider under my direct supervision, ancillary studies were reviewed. I agree with the plan as outlined with JOSEPHINE Luis. HPI, workup/dispo as outlined. VS reviewed, wnl. acute appy, abx cef and flagyl transfer to [facility], no surgery here. <Karissa Matthews - Last Filed: 07/22/19 20:11> Discharge - Discharge Information Problems reviewed: Yes - Transfer to Acute Care Facility Receiving Facility Name: [facility] (Dr. Gray/ Dr. Dutton accepting) Accepting Physician:: Dallas Gray/Nato <Jhonathan Henry - Last Filed: 07/20/19 23:48> <Karissa Matthews - Last Filed: 07/22/19 20:11> - Discharge Information Clinical Impression/Diagnosis: Abdominal pain Qualifiers: Abdominal location: unspecified location Qualified Code(s): R10.9 - Unspecified abdominal pain Acute appendicitis Qualifiers: Acute appendicitis type: unspecified acute appendicitis type Qualified Code(s): K35.80 - Unspecified acute appendicitis Condition: Stable Disposition: TRANSFER ACUTE CARE/OTHER HOSP - Follow up/Referral Referrals: Clement Marti MD [Primary Care Provider] - - Patient Discharge Instructions - Post Discharge Activity
--- NOTE | 2019-07-21 09:50 | EKG ---
Test Reason : Blood Pressure : / mmHG Vent. Rate : 075 BPM Atrial Rate : 075 BPM P-R Int : 134 ms QRS Dur : 076 ms QT Int : 404 ms P-R-T Axes : 031 -80 021 degrees QTc Int : 451 ms NORMAL SINUS RHYTHM LEFT AXIS DEVIATION PULMONARY DISEASE PATTERN NONSPECIFIC T WAVE ABNORMALITY ABNORMAL ECG WHEN COMPARED WITH ECG OF 25-DEC-2017 17:54, NO SIGNIFICANT CHANGE WAS FOUND Confirmed by Seb Zepeda MD ([id number]) on 07/21/2019 9:50:22 AM Referred By: Confirmed By:Seb Zepeda MD
== END 2019-07-20 23:54 | disposition short-term general hospital (02) ==
LOC: JER 15:24
PROC: 3E033GC Introduction of Other Therapeutic Substance into Peripheral Vein, Percutaneous Approach (ICD-10-PCS; principal; 2019-07-20)
PROC: 3E03329 Introduction of Other Anti-infective into Peripheral Vein, Percutaneous Approach (ICD-10-PCS; 2019-07-20)
PROC: 3E03329 Introduction of Other Anti-infective into Peripheral Vein, Percutaneous Approach (ICD-10-PCS; 2019-07-20)
PROC: 3E033NZ Introduction of Analgesics, Hypnotics, Sedatives into Peripheral Vein, Percutaneous Approach (ICD-10-PCS; 2019-07-20)
PROC: 3E033NZ Introduction of Analgesics, Hypnotics, Sedatives into Peripheral Vein, Percutaneous Approach (ICD-10-PCS; 2019-07-20)
PROC: 3E0333Z Introduction of Anti-inflammatory into Peripheral Vein, Percutaneous Approach (ICD-10-PCS; 2019-07-20)
PROC: 3E033GC Introduction of Other Therapeutic Substance into Peripheral Vein, Percutaneous Approach (ICD-10-PCS; 2019-07-20)
DX: K35.80 Unspecified acute appendicitis (principal); E53.9 Vitamin B deficiency, unspecified; Z87.19 Personal history of other diseases of the digestive system; Z90.49 Acquired absence of other specified parts of digestive tract
CPT/HCPCS: 36415; 74177-TC; 76700-TC; 80053; 83690; 84484; 85025; 93005; 93010; 99285-25; J0131; Q9967

== ENCOUNTER 2020-01-01 13:23 | Inpatient (IN) | payer OTHER ==
--- NOTE | 2020-01-01 13:43 | PDOC ---
Rapid Medical Evaluation Chief Complaint: Cold Symptoms Time Seen by Provider: 01/01/20 13:37 Medical Evaluation: Allergies Allergy/AdvReac Type Severity Reaction Status Date / Time morphine Allergy Severe palpitation Verified 01/01/20 13:30 s Vital Signs Temp Pulse Resp BP Pulse Ox 99.9 F H 111 H 20 118/88 99 01/01/20 13:30 01/01/20 13:30 01/01/20 13:30 01/01/20 13:30 01/01/20 13:30 01/01/20 13:42 HPI: 54-year-old female 1 day status post ERCP presents for evaluation of right- sided upper quadrant pain and fever which started last night PE:Right upper quadrant tenderness IMPRESSION: Right upper quadrant pain status post ERCP preliminary laboratory orders were placed patient to the main emergency room for further evaluation and treatment Discharge Disposition - Diagnosis Abdominal pain - Referrals - Patient Instructions - Post Discharge Activity
[2020-01-01 14:42] LABS: BASO % 0.3 % (0-2.0); EOS % 0.1 % (0-4.5); HEMATOCRIT 40.6 % (32.4-45.2); HEMOGLOBIN 13.9 GM/dL (10.7-15.3); MCHC 34.3 g/dl (32.0-36.0); MEAN CELL VOLUME 90.5 fl (80-96); MEAN PLT VOLUME 8.7 fl (7.5-11.1); MONO % 4.3 % (3.8-10.2); NEUT % 88.3 % (42.8-82.8); PLATELET COUNT 211 K/MM3 (134-434); RBC 4.49 M/mm3 (3.60-5.2); RDW 13.3 % (11.6-15.6); WHITE BLOOD COUNT 8.2 K/mm3 (4.0-10.0)
[2020-01-01] MEDS ORDERED: SODIUM CHLORIDE 1,769 ML IV ONE (14:42)
[2020-01-01] MEDS ORDERED: ACETAMINOPHEN 1000 MG/100 ML VIAL (NON FORMULARY) IVPB ONE (14:43)
[2020-01-01] MEDS ORDERED: ACETAMINOPHEN INJECTION 100 ML IVPB ONE (14:49)
--- NOTE | 2020-01-01 15:21 | PDOC ---
History of Present Illness - General Chief Complaint: Pain Stated Complaint: FEVER/COUGH Time Seen by Provider: 01/01/20 13:37 - History of Present Illness Initial Comments: Pt is a 54yo F with PMH cholecystectomy s/p multiple ERCP who presents with RUQ pain and fever s/p ERCP yesterday. States that she has been in worsening pain since her procedure yesterday. States pain is 10/10, "pinching" in quality, intermittent with worst pain episodes lasting 5 minutes, located in RUQ, RLQ, and right back. A/w bilateral leg pain/weakness. Has been able to tolerate PO intake without n/v. Took 650mg Tylenol at 12pm today with minimal improvement in symptoms. Associated with headache, lightheadedness, chest pain with radiation to left arm. ERCP was done yesterday at [facility] with Dr. Killian. PCP: Clement Marti PMH: denies PSHx: cholecystectomy Meds: denies All: morphine (palpitations) Social: social etoh use; denies tobacco, illicit drug use Review of Systems CONSTITUTIONAL:reports fever, malaise HEENT:denies rhinorrhea, nasal congestion, sore throat CARDIOVASCULAR:reports chest pain, lightheadedness; denies palpitations RESPIRATORY:denies cough, shortness of breath, wheezing GASTROINTESTINAL: reports abdominal pain; denies nausea, vomiting, diarrhea, constipation, melena, hematochezia GENITOURINARY:denies dysuria, frequency, urgency, hematuria MUSCULOSKELETAL:reports R back pain HEMATOLOGIC/IMMUNOLOGIC:denies easy bleeding, easy bruising ENDOCRINE: denies unexplained weight gain, unexplained weight loss NEUROLOGIC:reports headache, denies loss of consciousness, unsteady gait, ment al status changes, bladder or bowel incontinence SKIN:denies rash, itching, pallor Physical Exam General: awake, alert, fully oriented, in moderate distress, well developed, well nourished Head: normocephalic, atraumatic Eyes: PERRL, EOMI, anicteric sclera, conjunctiva clear ENT: hearing grossly normal, oropharynx clear without exudates. Moist mucous membranes Neck: supple, normal ROM Lung: equal breath sounds b/l, CTA b/l, no crackles, wheezes; no distress, speaks full sentences Heart: RRR, normal S1, S2, no murmurs appreciated Abdomen: soft, TTP in RUQ, normoactive bowel sounds, no guarding, rebound, masses; no CVA tenderness Extremities: normal ROM, no edema, no erythema or tenderness, DP/PT pulses 2+ and symmetric Neuro: CN2-12 grossly intact, moves all extremities, normal speech, normal gait, sensation intact Skin: warm, dry, no rashes or lesions noted Past History - Medical History Allergies/Adverse Reactions: Allergies Allergy/AdvReac Type Severity Reaction Status Date / Time morphine Allergy Severe palpitation Verified 01/01/20 13:30 s Home Medications: Ambulatory Orders Omeprazole 20 mg PO DAILY 01/01/20 Anemia: Yes Asthma: No Cancer: No Cardiac Disorders: No CVA: No COPD: No CHF: No Dementia: No Diabetes: No GI Disorders: Yes (CONSTIPATION, PANCRATITIS) Disorders: No HTN: No Hypercholesterolemia: No Liver Disease: No Seizures: No Thyroid Disease: No - Surgical History Abdominal Surgery: Yes Appendectomy: No Cardiac Surgery: No Cholecystectomy: Yes Lung Surgery: No Neurologic Surgery: No Orthopedic Surgery: No - Immunization History Immunization Up to Date: Yes - Psycho-Social/Smoking History Smoking Status: No Smoking History: Never smoked Have you smoked in the past 12 months: No Number of Cigarettes Smoked Daily: 0 - Substance Abuse Hx (Audit-C & DAST Scrn) How often the patient has a drink containing alcohol: Never Score: In Men: 4 or > Positive; In Women: 3 or > Positive: 0 Screen Result (Pos requires Nsg. Audit-10AR): Negative In the last yr the pt used illegal drug/Rx for NonMed reason: No Score: Yes response is considered Positive: 0 Screen Result (Positive result requires Nsg. DAST-10): Negative *Physical Exam - Vital Signs Last Vital Signs Temp Pulse Resp BP Pulse Ox 99.9 F H 111 H 20 118/88 99 01/01/20 13:30 01/01/20 13:30 01/01/20 13:30 01/01/20 13:30 01/01/20 13:30 ED Treatment Course - LABORATORY CBC & Chemistry Diagram: 01/01/20 14:30 01/01/20 14:30 - ADDITIONAL ORDERS Additional order review: Laboratory Results 01/01/20 14:30 WBC 8.2 RBC 4.49 Hgb 13.9 Hct 40.6 MCV 90.5 MCH 31.0 MCHC 34.3 RDW 13.3 Plt Count 211 MPV 8.7 Absolute Neuts (auto) 7.3 Neutrophils % 88.3 H D Lymphocytes % 7.0 L D Monocytes % 4.3 Eosinophils % 0.1 D Basophils % 0.3 Nucleated RBC % 0 01/01/20 14:30 RBC 4.49 MCV 90.5 MCHC 34.3 RDW 13.3 MPV 8.7 Neutrophils % 88.3 H D Lymphocytes % 7.0 L D Monocytes % 4.3 Eosinophils % 0.1 D Basophils % 0.3 Medical Decision Making - Medical Decision Making Pt is a 54yo F with PMH cholecystectomy s/p multiple ERCP who presents with RUQ pain and fever s/p ERCP yesterday. DDx: cholangitis, perforation, pancreatitis, ACS, appendicitis, primary biliary cirrhosis Plan: labs, EKG, CXR, pain control EKG: normal sinus rhythm; HR 95bpm, KS 132ms, QRS 82ms, QTc 439 ms, left axis deviation, T wave inversions in V1-V3, seen in previous EKG 07/2019 CXR: no free air under diaphragm; Will order CT a/p 01/01/20 15:56 labs: no leukocytosis, no anemia, no DAI, elevated LFTs, troponin WNL, UA w/bacteriuria Will order Zosyn 01/01/20 18:02 CT a/p: dilated appendiceal diameter 0.8cm, as seen from previous CT on 07/2019; dilated CBD with max 1.5cm diameter; mild colonic diverticulosis, possible diffuse hepatic steatosis Will order LR @100cc/hr, NPO 01/01/20 18:[address] Zee who recommended starting pt on Zosyn, will follow patient tomorrow Pt d/w Dr. Butler who accepted care of patient 01/01/20 20:[address] Cerrato who is covering Dr. Schroeder, who will follow patient tomorrow - recommended repeat LFT tomorrow Disposition Admit Discharge - Discharge Information Problems reviewed: Yes Clinical Impression/Diagnosis: Elevated LFTs, Chronic appendicitis Abdominal pain Qualifiers: Abdominal location: right lower quadrant Qualified Code(s): R10.31 - Right lower quadrant pain Condition: Stable - Admission Yes - Follow up/Referral Referrals: Clement Marti MD [Primary Care Provider] - - Patient Discharge Instructions - Post Discharge Activity
[2020-01-01 15:24] LABS: INR 1.04 (0.83-1.09); PROTHROMBIN TIME (PATIENT) 12.3 SEC (9.7-13.0)
[2020-01-01 15:27] LABS: ACTIVATED PTT 29.2 SECONDS (25.2-36.5)
[2020-01-01 15:35] LABS: EPI CELLS 10 /uL (0-25.1); HYALINE CASTS 1 /uL (0-3.1); URINE APPEARANCE CLEAR; URINE BACTERIA 483 /uL (0-1359); URINE BILIRUBIN NEGATIVE (NEGATIVE); URINE COLOR YELLOW; URINE GLUCOSE (UA) NEGATIVE (NEGATIVE); URINE KETONE NEGATIVE (NEGATIVE); URINE LEUK ESTERASE TRACE (NEGATIVE); URINE NITRITE NEGATIVE (NEGATIVE); URINE PROTEIN NEGATIVE (NEGATIVE); URINE RBC 9 /uL (0-23.9); URINE WBC 17 /uL (0-25.8)
[2020-01-01 15:36] LABS: ALBUMIN 3.6 g/dl (3.4-5.0); ALK PHOS 204 U/L (45-117); ANION GAP 8 MMOL/L (8-16); BILIRUBIN,TOTAL 0.7 mg/dL (0.2-1); BLOOD UREA NITROGEN 12.8 mg/dL (7-18); CALCIUM 9.2 mg/dL (8.5-10.1); CHLORIDE 109 mmol/L (98-107); CO2 22 mmol/L (21-32); CREATININE 0.6 mg/dL (0.55-1.3); GLUCOSE,RANDOM 143 mg/dL (74-106); LIPASE 132 U/L (73-393); POTASSIUM 3.6 mmol/L (3.5-5.1); SGOT/AST 282 U/L (15-37); SGPT/ALT 410 U/L (13-61); SODIUM 138 mmol/L (136-145); TOT PROT 7.1 g/dl (6.4-8.2)
[2020-01-01] MEDS ORDERED: PIPERACILLIN/TAZOB 4.5 GM 4.5 GM in DEXTROSE 5%-WATER 100 ML IVPB ONE (15:45)
--- NOTE | 2020-01-01 15:56 | PDOC ---
Documentation entered by Veronica Hancock SCRIBE, acting as scribe for Gordo Lockett MD. Gordo Lockett MD: This documentation has been prepared by the Karissa saenz Xhesika, SCRIBE, under my direction and personally reviewed by me in its entirety. I confirm that the documentation accurately reflects all work, treatment, procedures, and medical decision making performed by me. Attending Attestation - Resident Resident Name: Jacy Elam - ED Attending Attestation I have performed the following: I have examined & evaluated the patient, The case was reviewed & discussed with the resident, I agree w/resident's findings & plan, Exceptions are as noted - HPI HPI: 01/01/20 14:17 The patient is a 54-year-old female with a PMH of cholecystectomy who presents to the ED with for sharp RUQ abdominal pain and fever since last night. Pt is 1 day s/p ERCP and immediately after her procedure her symptoms began. Allergies: morphine PCP: Clement Marti - Physicial Exam PE: 01/01/20 15:54 EXAMINATION CONSTITUTIONAL: Awake and alert, well-nourished, in mild to moderate distress HEAD: Normocephalic; atraumatic EYES: PERRL; EOM intact; No icterus ENMT: External appears normal; mm-dry NECK: Supple; non-tender; CARD: Normal S1, S2; no murmurs, rubs, or gallops RESP: Normal chest excursion with respiration; breath sounds clear and equal bilaterally; no wheezes, rhonchi, or rales ABD: Soft, non-distended; +epigastric, ruq/rlq tender; no g/r; no palpable organomegaly, no palpable hernias EXT: Normal ROM in all four extremities; non-tender to palpation; distal pulses intact SKIN: Warm, dry, no rash NEURO: No focal neurological deficiencies. - Medical Decision Making 01/01/20 15:55 Patient is a 54-year-old female with history of primary biliary sclerosis, status post ERCP 2 days previously presents with fever, diffuse abdominal pain and nausea. In the ED, patient is tachycardic and febrile. Physical exam reveals severe epigastric and right lower quadrant tenderness to deep palpation. Differential diagnosis includes pancreatitis versus cholangitis versus viscus perforation. Will obtain CBC/CMP/UA/blood cultures. Will administer IV fluids and IV Tylenol. Will cover with broad-spectrum antibiotics. Will obtain CT of abdomen pelvis with IV contrast. Will reassess. Discharge - Discharge Information Problems reviewed: Yes Clinical Impression/Diagnosis: Abdominal pain Qualifiers: Abdominal location: right lower quadrant Qualified Code(s): R10.31 - Right lower quadrant pain - Follow up/Referral Referrals: Clement Marti MD [Primary Care Provider] - - Patient Discharge Instructions - Post Discharge Activity
[2020-01-01] MEDS ORDERED: PIPERACILLIN/TAZOB 3.375 GM 3.375 GM/50 ML BAG IVPB ONE (16:03)
[2020-01-01] MEDS: LACTATED RINGERS SOLUTION 1,000 ML/1,000 ML INFUS.BAG IV SCH (18:17)
[2020-01-02] MEDS ORDERED: PIPERACILLIN/TAZOB 3.375 GM 3.375 GM in DEXTROSE 5%-WATER - 50 ML IVPB ONE
[2020-01-02] MEDS: DEXTROSE 5%-0.45% SALINE 1,000 ML IV SCH ×2 (00:07→00:17)
[2020-01-02] MEDS ORDERED: PIPERACILLIN/TAZOBACTAM 3.375 GM VIAL IVPB ONE ×3 (01:21→17:15)
[2020-01-02] MEDS ORDERED: DEXTROSE 5%-WATER - 50 ML IVPB ONE ×3 (01:21→17:15)
[2020-01-02] MEDS ORDERED: PIPERACILLIN/TAZOB 3.375 GM 3.375 GM in DEXTROSE 5%-WATER - 50 ML IVPB SCH (02:00)
[2020-01-02] MEDS: PIPERACILLIN/TAZOB 3.375 GM 3.375 GM in DEXTROSE 5%-WATER - 50 ML IVPB SCH ×3 (02:10→17:27)
[2020-01-02] MEDS: ACETAMINOPHEN 325 MG TABLET (FP) PO PRN ×2 (04:08→21:50)
[2020-01-02 04:25] VITALS: BMI 32.9
[2020-01-02 08:11] LABS: ALBUMIN 3.2 g/dl (3.4-5.0); BILIRUBIN,TOTAL 1.6 mg/dL (0.2-1); CALCIUM 8.9 mg/dL (8.5-10.1); CREATININE 0.6 mg/dL (0.55-1.3); TOT PROT 6.3 g/dl (6.4-8.2)
[2020-01-02 08:16] LABS: BASO % 0.3 % (0-2.0); EOS % 0.3 % (0-4.5); HEMATOCRIT 40.5 % (32.4-45.2); HEMOGLOBIN 13.8 GM/dL (10.7-15.3); LYMPH % 17.4 % (8-40); MCH 31.1 pg (25.7-33.7); MCHC 34.2 g/dl (32.0-36.0); MEAN PLT VOLUME 8.8 fl (7.5-11.1); MONO % 9.2 % (3.8-10.2); NEUT % 72.8 % (42.8-82.8); PLATELET COUNT 186 K/MM3 (134-434); RBC 4.45 M/mm3 (3.60-5.2); RDW 13.5 % (11.6-15.6); WHITE BLOOD COUNT 2.9 K/mm3 (4.0-10.0)
[2020-01-02] MEDS: ENOXAPARIN NA (PORCINE) 40 MG/0.4 ML DISP.SYRIN SQ SCH (11:29)
--- NOTE | 2020-01-02 12:17 | CONSULT ---
- Consultation REQUESTING PROVIDER: CONSULT REQUEST: We have been asked to surgically evaluate this patient for abdominal pain/ct findings PCP:Clarissa Butler HISTORY OF PRESENT ILLNESS: 54 y/o F w/ PMHx B12 deficiency anemia, acute cholecystitis s/p lap cholecystectomy 7 years ago now a/w abdominal pain. Pt reports she began having abdo pain 2 weeks ago located in her ruq and rlq with radiation to her right flank. Pt states pain resolved after 1 day, however recur red a few days ago and remains persistent. Pt was seen by Dr Killian at [facility] where she had an ERCP done on 12/30 which revealed dilated cbd, no stones in biliary tract. Ibuprofen was recommended and f/u. Pt reports she took Ibuprofen without relief. Refusing f.u at [facility]. Has been able to tolerate PO intake without n/v, however reports eating food worsens her current pain. Has h/o lap Acute cholecystitis/choledocholithiasis in 2009 at which time she was admitted to [facility] for workup and trtmt. Pt had ERCP done after lap ernie which revealed cbd stones, stones were extracted, pt underwent stent placement and sphincterotomy. Pt has had multiple visits to er as well as admissions for workup of r sided abdo pain. Pt reports admission for episode of pancreatitis several years ago. Denies etoh abuse. PMHx: as above PSHx: as above Home Medications Medication Instructions Recorded Omeprazole 20 mg PO DAILY 01/01/20 Allergies Allergy/AdvReac Type Severity Reaction Status Date / Time morphine Allergy Severe palpitation Verified 01/01/20 13:30 s REVIEW OF SYSTEMS: CONSTITUTIONAL: (+) fever, (-) chills, (-) diaphoresis CARDIOVASCULAR: Absent: chest pain, syncope RESPIRATORY: Absent: cough, shortness of breath GASTROINTESTINAL: (+) abdominal pain, (-) abdominal distension, (-)nausea, (-)vomiting, (- )diarrhea, (-) constipation GENITOURINARY: Absent: dysuria, frequency, urgency PHYSICAL EXAM: GENERAL: Awake, alert, and fully oriented, in no acute distress. HEAD: Normal with no signs of trauma. LUNGS: No accessory muscle use on RA ABDOMEN: Soft, + ttp in ruq and rlq, not distended, normoactive bowel sounds, no guarding, no rebound Vital Signs Temperature 98.0 F 01/02/20 06:00 Pulse Rate 82 01/02/20 06:00 Respiratory Rate 18 01/02/20 06:00 Blood Pressure 118/63 01/02/20 06:00 O2 Sat by Pulse Oximetry (%) 94 L 01/02/20 06:00 Lab Results WBC 2.9 K/mm3 (4.0-10.0) L 01/02/20 07:19 RBC 4.45 M/mm3 (3.60-5.2) 01/02/20 07:19 Hgb 13.8 GM/dL (10.7-15.3) 01/02/20 07:19 Hct 40.5 % (32.4-45.2) 01/02/20 07:19 MCV 91.0 fl (80-96) 01/02/20 07:19 MCHC 34.2 g/dl (32.0-36.0) 01/02/20 07:19 RDW 13.5 % (11.6-15.6) 01/02/20 07:19 Plt Count 186 K/MM3 (134-434) 01/02/20 07:19 INR 1.04 (0.83-1.09) 01/01/20 14:30 Sodium 142 mmol/L (136-145) 01/02/20 07:19 Potassium 4.0 mmol/L (3.5-5.1) 01/02/20 07:19 Chloride 111 mmol/L (98-107) H 01/02/20 07:19 Carbon Dioxide 23 mmol/L (21-32) 01/02/20 07:19 Anion Gap 8 MMOL/L (8-16) 01/02/20 07:19 BUN 8.0 mg/dL (7-18) 01/02/20 07:19 Creatinine 0.6 mg/dL (0.55-1.3) 01/02/20 07:19 Random Glucose 113 mg/dL (74-106) H 01/02/20 07:19 Calcium 8.9 mg/dL (8.5-10.1) 01/02/20 07:19 Blood Type O POSITIVE 01/01/20 14:30 Antibody Screen Negative 01/01/20 14:30 A/P: 54 y/o F w/ PMHx B12 deficiency anemia, acute cholecystitis s/p lap cholecystectomy 7 years ago now a/w abdominal pain. Low grade fevers yesterday (T max 100.9) Leukopenia (began during a prior admission in 2017 felt to be a medication s.e., unclear if pt has pursued outpt workup) Elevated LFTS Ct scan reviewed with attending. Pain likely related to recent ERCP. Imaging not consistent with appendicitis. Pt declines transfer to [facility]. Recommend gi evaluation Call with any questions or concerns d/w attending Dr Owen and Dr Butler
--- NOTE | 2020-01-02 12:55 | CON.ID ---
Consult Consult Specialty:: infectious diseases Referred by:: Reason for Consultation:: abd pain - History of Present Illness Chief Complaint: rt quadrant abd pain History of Present Illness: 4yo F with PMH cholecystectomy s/p multiple ERCP who presents with RUQ pain and fever s/p ERCP yesterday. States that she has been in worsening pain since her procedure yesterday. States pain is 10/10, "pinching" in quality, intermittent with worst pain episodes lasting 5 minutes, located in RUQ, RLQ, and right back. A/w bilateral leg pain/weakness. Has been able to tolerate PO intake without n/v. Took 650mg Tylenol at 12pm today with minimal improvement in symptoms. Associated with headache, lightheadedness, chest pain with radiation to left arm. 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) Pulmonary: Yes: Other (recent URI for which patient took Tamiflu) Gastrointestinal: Yes: Pancreatitis Hepatobiliary: Yes: Other (hx of cholecystectomy 5 years earlier) ...LMP: 10/03/12 - Alcohol/Substance Use Hx Alcohol Use: No - Smoking History Smoking history: Never smoked Have you smoked in the past 12 months: No Aproximately how many cigarettes per day: 0 - Social History 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 Home Medications - Allergies Allergies/Adverse Reactions: Allergies Allergy/AdvReac Type Severity Reaction Status Date / Time morphine Allergy Severe palpitation Verified 01/01/20 13:30 s - Home Medications Home Medications: Ambulatory Orders Omeprazole 20 mg PO DAILY 01/01/20 Review of Systems - Review of Systems Constitutional: reports: No Symptoms Eyes: reports: No Symptoms HENT: reports: No Symptoms Neck: reports: No Symptoms Cardiovascular: reports: No Symptoms Respiratory: reports: No Symptoms Gastrointestinal: reports: Abdominal Pain Genitourinary: reports: No Symptoms Musculoskeletal: reports: No Symptoms Integumentary: reports: No Symptoms Neurological: reports: No Symptoms Endocrine: reports: No Symptoms Hematology/Lymphatic: reports: No Symptoms Psychiatric: reports: No Symptoms Physical Exam Vital Signs: Vital Signs Temperature 98.0 F 01/02/20 06:00 Pulse Rate 82 01/02/20 06:00 Respiratory Rate 18 01/02/20 06:00 Blood Pressure 118/63 01/02/20 06:00 O2 Sat by Pulse Oximetry (%) 96 01/02/20 09:00 Constitutional: Yes: Well Nourished, Calm, Mild Distress Eyes: Yes: Conjunctiva Clear HENT: Yes: Atraumatic, Normocephalic Neck: Yes: Supple, Trachea Midline Cardiovascular: Yes: Regular Rate and Rhythm Respiratory: Yes: Regular, CTA Bilaterally Gastrointestinal: Yes: Normal Bowel Sounds, Soft Musculoskeletal: Yes: WNL Extremities: Yes: WNL Neurological: Yes: Alert, Oriented Psychiatric: Yes: Alert, Oriented Labs: CBC, BMP 01/02/20 07:19 01/02/20 07:19 Imaging - Results Chest X-ray: Report Reviewed, Image Reviewed X-ray: Report Reviewed, Image Reviewed Cat Scan: Report Reviewed, Image Reviewed Assessment/Plan this patient with multiple medical issues coming in with dilatation of the cbd a nd abd pain cause of dilation of cbd i am going to continue zosyn on the patient monitor carefully will ahve to figure out cause of dilatation might need ercp rest as per the team
--- NOTE | 2020-01-02 15:21 | PN ---
Progress Note, Physician History of Present Illness: This was entered in error - Current Medication List Current Medications: Active Medications Acetaminophen (Tylenol -) 650 mg PO Q6H PRN PRN Reason: FEVER OR PAIN Last Admin: 01/02/20 04:08 Dose: 650 mg Documented by: Enoxaparin Sodium (Lovenox -) 40 mg SQ DAILY NELLY Last Admin: 01/02/20 11:29 Dose: Not Given Documented by: Lactated Ringer's (Lactated Ringers Solution) 1,000 ml in 1,000 mls @ 100 mls/hr IV ASDIR NELLY Last Admin: 01/01/20 18:17 Dose: 100 mls/hr Documented by: Dextrose/Sodium Chloride (D5-1/2ns -) 1,000 mls @ 75 mls/hr IV ASDIR NELLY Last Admin: 01/02/20 00:17 Dose: 75 mls/hr Documented by: Piperacillin Sod/Tazobactam (Sod 3.375 gm/ Dextrose) 50 mls @ 100 mls/hr IVPB Q8H-IV NELLY; Protocol - Objective Vital Signs: Vital Signs Temperature 98.0 F 01/02/20 06:00 Pulse Rate 82 01/02/20 06:00 Respiratory Rate 18 01/02/20 06:00 Blood Pressure 118/63 01/02/20 06:00 O2 Sat by Pulse Oximetry (%) 96 01/02/20 09:00 Labs: CBC, BMP 01/02/20 07:19 01/02/20 07:19 INR, PTT INR 1.04 (0.83-1.09) 01/01/20 14:30
--- NOTE | 2020-01-02 16:56 | EKG ---
Test Reason : Blood Pressure : / mmHG Vent. Rate : 095 BPM Atrial Rate : 095 BPM P-R Int : 132 ms QRS Dur : 082 ms QT Int : 350 ms P-R-T Axes : 032 -65 000 degrees QTc Int : 439 ms NORMAL SINUS RHYTHM LEFT AXIS DEVIATION PULMONARY DISEASE PATTERN NONSPECIFIC T WAVE ABNORMALITY ABNORMAL ECG WHEN COMPARED WITH ECG OF 20-JUL-2019 16:41, NO SIGNIFICANT CHANGE WAS FOUND Confirmed by GENARO SANTANA, JENIFER ([id number]) on 01/02/2020 4:56:18 PM Referred By: Confirmed By:JENIFER LAM MD
--- NOTE | 2020-01-02 17:41 | CON.GI ---
Consult - History of Present Illness History of Present Illness: Pt is a 54yo F with PMH cholecystectomy s/p multiple ERCP who presents with RUQ pain and fever s/p ERCP yesterday. States that she has been in worsening pain since her procedure yesterday. States pain is 10/10, "pinching" in quality, intermittent with worst pain episodes lasting 5 minutes, located in RUQ, RLQ, and right back. A/w bilateral leg pain/weakness. Has been able to tolerate PO intake without n/v. Took 650mg Tylenol at 12pm today with minimal improvement in symptoms. Associated with headache, lightheadedness, chest pain with radiation to left arm. Today the patient is asymptomatic. 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 Home Medications - Allergies Allergies/Adverse Reactions: Allergies Allergy/AdvReac Type Severity Reaction Status Date / Time morphine Allergy Severe palpitation Verified 01/01/20 13:30 s - Home Medications Home Medications: Ambulatory Orders Omeprazole 20 mg PO DAILY 01/01/20 Physical Exam-GI Vital Signs: Vital Signs Temperature 99.1 F 01/02/20 14:00 Pulse Rate 76 01/02/20 14:00 Respiratory Rate 18 01/02/20 14:00 Blood Pressure 121/83 01/02/20 14:00 O2 Sat by Pulse Oximetry (%) 96 01/02/20 09:00 Constitutional: Yes: Well Nourished Eyes: Yes: Conjunctiva Clear HENT: Yes: Atraumatic Neck: Yes: Supple Cardiovascular: Yes: Regular Rate and Rhythm Respiratory: Yes: CTA Bilaterally ...Palpate: Yes: Soft. No: Firm/Rigid, Guarding, Hepatomegaly, Mass, Pulsatile Mass, Splenomegaly, Tenderness Labs: CBC, BMP 01/02/20 07:19 01/02/20 07:19 INR, PTT INR 1.04 (0.83-1.09) 01/01/20 14:30 Problem List - Problems (1) Abdominal pain Assessment/Plan: etiology unclear R> surgical consultation because of enlarged appendix--r/o adenoma vs chronic appendicitis advance diet Code(s): R10.9 - UNSPECIFIED ABDOMINAL PAIN Qualifiers: Abdominal location: right lower quadrant Qualified Code(s): R10.31 - Right lower quadrant pain
--- NOTE | 2020-01-02 21:16 | HP ---
Admitting History and Physical - Admission History of Present Illness: Pt is a 54yo F with PMH cholecystectomy s/p multiple ERCP who presents with RUQ pain and fever s/p ERCP yesterday. States that she has been in worsening pain since her procedure yesterday. States pain is 10/10, "pinching" in quality, intermittent with worst pain episodes lasting 5 minutes, located in RUQ, RLQ, and right back. A/w bilateral leg pain/weakness. Has been able to tolerate PO intake without n/v. Took 650mg Tylenol at 12pm today with minimal improvement in symptoms. 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 Home Medications - Allergies Allergies/Adverse Reactions: Allergies Allergy/AdvReac Type Severity Reaction Status Date / Time morphine Allergy Severe palpitation Verified 01/01/20 13:30 s - Home Medications Home Medications: Ambulatory Orders Omeprazole 20 mg PO DAILY 01/01/20 Family Medical History Family History: Unremarkable Review of Systems - Review of Systems Constitutional: reports: No Symptoms Eyes: reports: No Symptoms HENT: reports: No Symptoms Neck: reports: No Symptoms Cardiovascular: reports: No Symptoms Respiratory: reports: No Symptoms Gastrointestinal: reports: Abdominal Pain Genitourinary: reports: No Symptoms Physical Examination Vital Signs: Vital Signs Temperature 98.6 F 01/02/20 18:00 Pulse Rate 79 01/02/20 18:00 Respiratory Rate 19 01/02/20 18:00 Blood Pressure 126/78 01/02/20 18:00 O2 Sat by Pulse Oximetry (%) 96 01/02/20 09:00 Constitutional: Yes: No Distress Eyes: Yes: WNL HENT: Yes: WNL Neck: Yes: WNL, Supple Cardiovascular: Yes: WNL, Regular Rate and Rhythm Respiratory: Yes: WNL, Regular, CTA Bilaterally Gastrointestinal: Yes: WNL, Normal Bowel Sounds, Soft Extremities: Yes: WNL Edema: No Neurological: Yes: WNL, Alert, Oriented ...Motor Strength: WNL Labs: CBC, BMP 01/02/20 07:19 01/02/20 07:19 Problem List - Problems (1) Elevated LFTs Assessment/Plan: Uncler etiology ?Due to ERCP As per GI Monitor LFT's Advance diet Code(s): R79.89 - OTHER SPECIFIED ABNORMAL FINDINGS OF BLOOD CHEMISTRY (2) Abdominal pain Assessment/Plan: Cont IV antibxs Surgical consult noted no intervention at this time ?appendicitis Code(s): R10.9 - UNSPECIFIED ABDOMINAL PAIN Qualifiers: Abdominal location: right lower quadrant Qualified Code(s): R10.31 - Right lower quadrant pain (3) Leukopenia Assessment/Plan: ?Viral etiology Repeat Labs in am Code(s): D72.819 - DECREASED WHITE BLOOD CELL COUNT, UNSPECIFIED Qualifiers: Neutropenia type: unspecified
[2020-01-03] MEDS ORDERED: DEXTROSE 5%-WATER - 50 ML IVPB ONE ×3 (02:33→16:53)
[2020-01-03] MEDS ORDERED: PIPERACILLIN/TAZOBACTAM 3.375 GM VIAL IVPB ONE ×3 (02:33→16:53)
[2020-01-03] MEDS: DEXTROSE 5%-0.45% SALINE 1,000 ML IV SCH ×2 (02:49→07:53)
[2020-01-03] MEDS: PIPERACILLIN/TAZOB 3.375 GM 3.375 GM in DEXTROSE 5%-WATER - 50 ML IVPB SCH ×3 (02:50→17:05)
[2020-01-03 08:09] LABS: EOS % 3.8 % (0-4.5); HEMATOCRIT 42.9 % (32.4-45.2); HEMOGLOBIN 14.6 GM/dL (10.7-15.3); LYMPH % 35.3 % (8-40); MEAN CELL VOLUME 91.2 fl (80-96); MEAN PLT VOLUME 8.6 fl (7.5-11.1); MONO % 17.1 % (3.8-10.2); NEUT % 42.8 % (42.8-82.8); PLATELET COUNT 200 K/MM3 (134-434); RDW 13.5 % (11.6-15.6); WHITE BLOOD COUNT 2.2 K/mm3 (4.0-10.0)
[2020-01-03 08:30] LABS: ALBUMIN 3.1 g/dl (3.4-5.0); CALCIUM 9.1 mg/dL (8.5-10.1); CREATININE 0.6 mg/dL (0.55-1.3); TOT PROT 6.6 g/dl (6.4-8.2)
[2020-01-03 08:35] LABS: BLOOD UREA NITROGEN 8.2 mg/dL (7-18)
[2020-01-03] MEDS: ENOXAPARIN NA (PORCINE) 40 MG/0.4 ML DISP.SYRIN SQ SCH (10:10)
--- NOTE | 2020-01-03 12:49 | PN ---
Progress Note, Physician History of Present Illness: stable wbc still on lower side - Current Medication List Current Medications: Active Medications Acetaminophen (Tylenol -) 650 mg PO Q6H PRN PRN Reason: FEVER OR PAIN Last Admin: 01/02/20 21:50 Dose: 650 mg Documented by: Enoxaparin Sodium (Lovenox -) 40 mg SQ DAILY NELLY Last Admin: 01/03/20 10:10 Dose: Not Given Documented by: Lactated Ringer's (Lactated Ringers Solution) 1,000 ml in 1,000 mls @ 100 mls/hr IV ASDIR NELLY Last Admin: 01/01/20 18:17 Dose: 100 mls/hr Documented by: Dextrose/Sodium Chloride (D5-1/2ns -) 1,000 mls @ 75 mls/hr IV ASDIR NELLY Last Admin: 01/03/20 07:53 Dose: 75 mls/hr Documented by: Piperacillin Sod/Tazobactam (Sod 3.375 gm/ Dextrose) 50 mls @ 100 mls/hr IVPB Q8H-IV NELLY; Protocol Last Admin: 01/03/20 10:14 Dose: 100 mls/hr Documented by: - Objective Vital Signs: Vital Signs Temperature 98 F 01/03/20 10:14 Pulse Rate 68 01/03/20 10:14 Respiratory Rate 18 01/03/20 10:14 Blood Pressure 111/75 01/03/20 10:14 O2 Sat by Pulse Oximetry (%) 96 01/03/20 10:14 Constitutional: Yes: No Distress, Calm Cardiovascular: Yes: S1, S2 Respiratory: Yes: Regular, CTA Bilaterally Gastrointestinal: Yes: Normal Bowel Sounds, Soft Musculoskeletal: Yes: WNL Extremities: Yes: WNL Neurological: Yes: Alert, Oriented Psychiatric: Yes: Alert, Oriented Labs: CBC, BMP 01/03/20 07:29 01/03/20 07:29 INR, PTT INR 1.04 (0.83-1.09) 01/01/20 14:30 Assessment/Plan Problem List - Problems (1) Elevated LFTs Code(s): R79.89 - OTHER SPECIFIED ABNORMAL FINDINGS OF BLOOD CHEMISTRY (2) Abdominal pain Code(s): R10.9 - UNSPECIFIED ABDOMINAL PAIN Qualifiers: Abdominal location: right lower quadrant Qualified Code(s): R10.31 - Right lower quadrant pain (3) Leukopenia Code(s): D72.819 - DECREASED WHITE BLOOD CELL COUNT, UNSPECIFIED Qualifiers: Neutropenia type: unspecified dilated cbd plan will continue abx still wbc on lowe side monitor still no specific diagnosis
[2020-01-03] MEDS: LACTATED RINGERS SOLUTION 1,000 ML/1,000 ML INFUS.BAG IV SCH ×2 (17:02→18:15)
--- NOTE | 2020-01-03 17:28 | PN.GI ---
GI Progress Note Subjective: no abdominal pain no nausea and vomiting tolerating clear liquids - Objective Vital Signs: Vital Signs Temperature 98.0 F 01/03/20 15:25 Pulse Rate 73 01/03/20 15:25 Respiratory Rate 18 01/03/20 15:25 Blood Pressure 106/56 L 01/03/20 15:25 O2 Sat by Pulse Oximetry (%) 98 01/03/20 15:25 Constitutional: Well Nourished Eyes: Yes: Conjunctiva Clear HENT: Yes: Atraumatic Neck: Yes: Trachea Midline Cardiovascular: Yes: Regular Rate and Rhythm Respiratory: Yes: CTA Bilaterally ...Palpate: Yes: Soft. No: Firm/Rigid, Guarding, Hepatomegaly, Mass, Pulsatile Mass, Splenomegaly, Tenderness Labs: CBC, BMP 01/03/20 07:29 01/03/20 07:29 INR, PTT INR 1.04 (0.83-1.09) 01/01/20 14:30 Problem List - Problems (1) Abdominal pain Assessment/Plan: --resolved R> ok to d/c GI view point made aware to follow up Code(s): R10.9 - UNSPECIFIED ABDOMINAL PAIN Qualifiers: Abdominal location: right lower quadrant Qualified Code(s): R10.31 - Right lower quadrant pain
--- NOTE | 2020-01-03 17:58 | CON.HO ---
Consult - text type - Consultation Consultation Note: Pt is a 54yo F with PMH cholecystectomy s/p multiple ERCP who presents with RUQ pain and fever s/p ERCP with Dr. Killian. was starte on zosyn symptoms resolved 01/01/20 18:02 CT a/p: dilated appendiceal diameter 0.8cm, as seen from previous CT on 07/2019; dilated CBD with max 1.5cm diameter; mild colonic diverticulosis, possible diffuse hepatic steatosis We have been consulted for leukopenia /mild neutropenia Patient had similar presentations in the past. Was noted to have pernicious anemia. Lost to follow up since 2016 PCP: Clement Marti PMH: denies PSHx: cholecystectomy Meds: denies All: morphine (palpitations) Social: social etoh use; denies tobacco, illicit drug use - Medical History Allergies/Adverse Reactions: Allergies Allergy/AdvReac Type Severity Reaction Status Date / Time morphine Allergy Severe palpitation Verified 01/01/20 13:30 s Home Medications: Ambulatory Orders Omeprazole 20 mg PO DAILY 01/01/20 PMH pernicious anemia suspicion for autoimmune disease fatty liver GI Disorders: Yes (CONSTIPATION, PANCRATITIS) - Surgical History Abdominal Surgery: Yes Cholecystectomy: Yes - Immunization History Immunization Up to Date: Yes - Psycho-Social/Smoking History Smoking History: Never smoked - Vital Signs Vital Signs Temperature 98.0 F 01/03/20 15:25 Pulse Rate 73 01/03/20 15:25 Respiratory Rate 18 01/03/20 15:25 Blood Pressure 106/56 L 01/03/20 15:25 O2 Sat by Pulse Oximetry (%) 98 01/03/20 15:25 Constitutional: Well Nourished Eyes: Yes: Conjunctiva Clear Neck: Yes: Trachea Midline Cardiovascular: Yes: Regular Rate and Rhythm Respiratory: Yes: CTA Bilaterally P/A -- soft, NT, BS+ CBC, BMP 01/03/20 07:29 01/03/20 07:29 INR, PTT INR 1.04 (0.83-1.09) 01/01/20 14:30 A/P Pt is a 54yo F with PMH cholecystectomy s/p multiple ERCP who presents with RUQ pain and fever s/p ERCP with Dr. Killian. was starte on zosyn symptoms resolved 01/01/20 18:02 CT a/p: dilated appendiceal diameter 0.8cm, as seen from previous CT on 07/2019; dilated CBD with max 1.5cm diameter; mild colonic diverticulosis, possible diffuse hepatic steatosis We have been consulted for leukopenia /mild neutropenia. Normal Hgb/platelets Patient had similar presentations in the past. Was noted to have pernicious anemia. Lost to follow up since 2016 Recheck B12/ folate/TSH/fT4 Needs out patient f/u with hematology and [facility] based on course/w/u Discussed this withpatient and her
--- NOTE | 2020-01-03 22:56 | PN ---
Progress Note, Physician - Current Medication List Current Medications: Active Medications Acetaminophen (Tylenol -) 650 mg PO Q6H PRN PRN Reason: FEVER OR PAIN Last Admin: 01/02/20 21:50 Dose: 650 mg Documented by: Enoxaparin Sodium (Lovenox -) 40 mg SQ DAILY NELLY Last Admin: 01/03/20 10:10 Dose: Not Given Documented by: Piperacillin Sod/Tazobactam (Sod 3.375 gm/ Dextrose) 50 mls @ 100 mls/hr IVPB Q8H-IV NELLY; Protocol Last Admin: 01/03/20 17:05 Dose: 100 mls/hr Documented by: - Objective Vital Signs: Vital Signs Temperature 97.9 F 01/03/20 17:58 Pulse Rate 70 01/03/20 17:58 Respiratory Rate 18 01/03/20 17:58 Blood Pressure 133/77 01/03/20 17:58 O2 Sat by Pulse Oximetry (%) 97 01/03/20 17:58 Labs: CBC, BMP 01/03/20 07:29 01/03/20 07:29 INR, PTT INR 1.04 (0.83-1.09) 01/01/20 14:30
[2020-01-04] MEDS ORDERED: DEXTROSE 5%-WATER - 50 ML IVPB ONE ×2 (00:54→09:12)
[2020-01-04] MEDS ORDERED: PIPERACILLIN/TAZOBACTAM 3.375 GM VIAL IVPB ONE ×2 (00:54→09:11)
[2020-01-04] MEDS: PIPERACILLIN/TAZOB 3.375 GM 3.375 GM in DEXTROSE 5%-WATER - 50 ML IVPB SCH ×2 (01:26→09:40)
[2020-01-04 07:46] LABS: BASO % 0.6 % (0-2.0); HEMATOCRIT 42.9 % (32.4-45.2); HEMOGLOBIN 14.4 GM/dL (10.7-15.3); LYMPH % 28.7 % (8-40); MCH 30.2 pg (25.7-33.7); MCHC 33.5 g/dl (32.0-36.0); MEAN CELL VOLUME 89.9 fl (80-96); MEAN PLT VOLUME 8.6 fl (7.5-11.1); MONO % 15.4 % (3.8-10.2); NEUT % 52.3 % (42.8-82.8); PLATELET COUNT 229 K/MM3 (134-434); RBC 4.77 M/mm3 (3.60-5.2); RDW 13.6 % (11.6-15.6); WHITE BLOOD COUNT 3.5 K/mm3 (4.0-10.0)
[2020-01-04 08:15] LABS: BILIRUBIN,TOTAL 0.4 mg/dL (0.2-1); BLOOD UREA NITROGEN 10.9 mg/dL (7-18); CALCIUM 9.2 mg/dL (8.5-10.1); CREATININE 0.6 mg/dL (0.55-1.3); POTASSIUM 4.5 mmol/L (3.5-5.1); TOT PROT 6.4 g/dl (6.4-8.2)
[2020-01-04] MEDS: ENOXAPARIN NA (PORCINE) 40 MG/0.4 ML DISP.SYRIN SQ SCH (09:42)
[2020-01-04 10:12] VITALS: BP 114/74; PULSE 78; TEMP 98.3
--- NOTE | 2020-01-04 13:29 | PN ---
Progress Note, Physician History of Present Illness: stable no new issues - Current Medication List Current Medications: Active Medications Acetaminophen (Tylenol -) 650 mg PO Q6H PRN PRN Reason: FEVER OR PAIN Last Admin: 01/02/20 21:50 Dose: 650 mg Documented by: Enoxaparin Sodium (Lovenox -) 40 mg SQ DAILY NELLY Last Admin: 01/04/20 09:42 Dose: Not Given Documented by: Piperacillin Sod/Tazobactam (Sod 3.375 gm/ Dextrose) 50 mls @ 100 mls/hr IVPB Q8H-IV NELLY; Protocol Last Admin: 01/04/20 09:40 Dose: Not Given Documented by: - Objective Vital Signs: Vital Signs Temperature 98.3 F 01/04/20 10:05 Pulse Rate 78 01/04/20 10:05 Respiratory Rate 18 01/04/20 10:05 Blood Pressure 114/74 01/04/20 10:05 O2 Sat by Pulse Oximetry (%) 95 01/04/20 10:05 Constitutional: Yes: No Distress, Calm Cardiovascular: Yes: S1, S2 Respiratory: Yes: Regular, CTA Bilaterally Gastrointestinal: Yes: Normal Bowel Sounds, Soft Musculoskeletal: Yes: WNL Extremities: Yes: WNL Neurological: Yes: Alert, Oriented Psychiatric: Yes: Alert, Oriented Labs: CBC, BMP 01/04/20 07:05 01/04/20 07:05 INR, PTT INR 1.04 (0.83-1.09) 01/01/20 14:30 Assessment/Plan Problem List - Problems (1) Elevated LFTs Code(s): R79.89 - OTHER SPECIFIED ABNORMAL FINDINGS OF BLOOD CHEMISTRY (2) Abdominal pain Code(s): R10.9 - UNSPECIFIED ABDOMINAL PAIN Qualifiers: Abdominal location: right lower quadrant Qualified Code(s): R10.31 - Right lower quadrant pain (3) Leukopenia Code(s): D72.819 - DECREASED WHITE BLOOD CELL COUNT, UNSPECIFIED Qualifiers: Neutropenia type: unspecified dilated cbd plan will continue abx will deescalte by tomorrow if patient is stable
== END 2020-01-04 14:10 | disposition home or self-care (01) | DRG 252 ==
LOC: JER 13:23 → JERBED 16:46 → J5S 23:54
PROVIDERS: ADMIT Internal Medicine; ATTEND Internal Medicine
DX: K91.89 Other postprocedural complications and disorders of digestive system (principal); R10.31 Right lower quadrant pain; K36 Other appendicitis; K59.09 Other constipation; R79.89 Other specified abnormal findings of blood chemistry; D72.819 Decreased white blood cell count, unspecified; K57.90 Diverticulosis of intestine, part unspecified, without perforation or abscess without bleeding; K76.0 Fatty (change of) liver, not elsewhere classified; K82.8 Other specified diseases of gallbladder; D51.0 Vitamin B12 deficiency anemia due to intrinsic factor deficiency; Y84.8 Other medical procedures as the cause of abnormal reaction of the patient, or of later complication, without mention of misadventure at the time of the procedure
CPT/HCPCS: 36415; 71045-TC-FY; 74019-TC-FY; 74177-TC; 80053; 81003; 83605; 83690; 84484; 85025; 85610; 85730; 86850; 86900; 86901; 87040; 87086; 93005; 93010; 99285-25; J0131; Q9967; U0003

== ENCOUNTER 2020-07-22 04:36 | Day surgery (SDC) | payer OTHER ==
[2020-07-17 12:39] VITALS: BMI 24.3
[2020-07-22] MEDS ORDERED: LIDOCAINE HCL/PF 2% SDV 5ML VIAL ONE (15:09)
[2020-07-22] MEDS ORDERED: DEXAMETHASONE SOD PHOSPHATE 4 MG/1 ML VIAL ONE (15:09)
[2020-07-22] MEDS ORDERED: fentaNYL CITRATE 250 MCG/5 ML VIAL ONE (15:09)
[2020-07-22] MEDS ORDERED: ROCURONIUM BROMIDE 50 MG/5 ML SYRINGE ONE (15:09)
[2020-07-22] MEDS ORDERED: SUCCINYLCHOLINE CHLORIDE 200 MG/10 ML SYRINGE ONE (15:10)
[2020-07-22] MEDS ORDERED: PROPOFOL 20 ML ONE (15:10)
[2020-07-22] MEDS ORDERED: MIDAZOLAM HCL 2 MG/2 ML SINGLE DOSE VIAL ONE (15:10)
[2020-07-22] MEDS ORDERED: ceFAZolin SODIUM 1 GM VIAL ONE (15:40)
[2020-07-22] MEDS ORDERED: BUPIVACAINE LIPOSOME/PF (EXPAREL) 266 MG/20 ML VIAL ONE (16:07)
[2020-07-22] MEDS ORDERED: BUPIVACAINE LIPOSOME/PF (EXPAREL) 266 MG/20 ML VIAL NR ONE (16:09)
[2020-07-22] MEDS ORDERED: BUPIVACAINE HCL/PF 0.25% (2.5MG/ML) 10 ML VIAL IJ ONE (16:10)
[2020-07-22] MEDS ORDERED: GLYCOPYRROLATE 0.2 MG/1 ML VIAL ONE (16:19)
[2020-07-22] MEDS ORDERED: NEOSTIGMINE METHYLSULFATE 0.5 MG/ML - 10 ML MDV ONE (16:19)
[2020-07-22] MEDS ORDERED: KETOROLAC TROMETHAMINE 30 MG/1 ML VIAL ONE (16:19)
[2020-07-22] MEDS ORDERED: ACETAMINOPHEN 1000 MG/100 ML VIAL (NON FORMULARY) IVPB PRN (16:37)
[2020-07-22] MEDS ORDERED: KETOROLAC TROMETHAMINE 30 MG/1 ML VIAL IVPUSH PRN (16:37)
[2020-07-22] MEDS ORDERED: LACTATED RINGERS SOLUTION 1,000 ML/1,000 ML INFUS.BAG IV SCH (16:45)
[2020-07-22] MEDS ORDERED: ONDANSETRON 4 MG/2 ML VIAL IVPUSH PRN (17:16)
[2020-07-22] MEDS ORDERED: oxyCODONE HCL 5 MG TABLET PO PRN ×3 (17:16→17:21)
[2020-07-22] MEDS ORDERED: ACETAMINOPHEN 1000 MG/100 ML VIAL (NON FORMULARY) IVPB ONE (18:00)
[2020-07-22 19:17] VITALS: BP 115/81; PULSE 75; TEMP 98
== END 2020-07-22 19:17 | disposition home or self-care (01) ==
LOC: JASU-SURG 04:36
PROVIDERS: ATTEND Surgery
PROC: 0DTJ4ZZ Resection of Appendix, Percutaneous Endoscopic Approach (ICD-10-PCS; principal; 2020-07-22 15:00)
DX: K35.80 Unspecified acute appendicitis (principal)
CPT/HCPCS: 88304-TC; 94760; J0131